=== PATIENT | male | born 1935 | race Caucasian/White ===

== ENCOUNTER 2017-05-25 12:33 | Outpatient (CLI) | payer MEDICARE | END 2017-05-25 12:34 | disposition home or self-care (01) | LOC: BICCT 12:33 | PROVIDERS: ATTEND Family Medicine | DX: M25.551 Pain in right hip (principal); M46.1 Sacroiliitis, not elsewhere classified; M16.11 Unilateral primary osteoarthritis, right hip; M47.896 Other spondylosis, lumbar region; M48.061 Spinal stenosis, lumbar region without neurogenic claudication; I70.90 Unspecified atherosclerosis | CPT/HCPCS: 72131 ==

== ENCOUNTER → 2017-07-19 | Day surgery (SDC) | payer MEDICARE ==
[~2017-07-19] MED LIST: Iopamidol-M 200 41% 20 ML VIAL ONE; Prevnar 13-Val Conj/PF 0.5 ML SYRINGE IM ONE
--- NOTE | 2017-07-19 12:51 | RAD ---
LUMBAR SPINE: DATE: 07/19/17. COMPARISON: Spiral stenosis. FINDINGS: Imaging includes lateral, neutral, flexion, and extension views as well as frontal radiograph. This was utilized as a welfare supervisor for lumbar spine myelogram as well. There is extensive atherosclerotic calcification of the abdominal aorta. Lateral neutral imaging dem onstrates no anterolisthesis or retrolisthesis. With extension and flexion views, no anterolisthesis or retrolisthesis was noted. There is facet hypertrophy at L3-4, L4-5, and L5-S1. There is disk sp leslie narrowing with degenerative end plate change and anterior osteophyte formation at the L5-S1 level . No acute finding is seen. Lumbar pedicles appear intact on frontal imaging. IMPRESSION: Degenerative change with no acute osseous abnormality. POS: [facility]
--- NOTE | 2017-07-19 13:10 | CT ---
LUMBAR SPINE CT MYELOGRAM: 07/19/2017 HISTORY: Lower extremity radiculopathy on the right. Leg gives out when walking on the right. COMPARISON: None. TECHNIQUE: Axial CT imaging obtained at 2.5 mm intervals, from the lower thoracic spine through the mid sacrum, with intrathecal contrast media. Coronal and sagittal reformatted imaging obtained. FINDINGS: There is no significant anterolisthesis or retrolisthesis noted within the lumbar spine. The conus medullaris terminates at the T12-L1 level. T12-L1: There is mild disk space narrowing with vacuum disk formation and minimal disk bulge, causin g no significant central canal or neural foraminal stenosis. There is mild anterior osteophyte forma tion. L1-L2: There is mild bilateral facet hypertrophy with mild bilateral neural foraminal stenosis. The re is disk space narrowing with disk osteophyte complex causing no significant central canal stenosis . L2-L3: Mild bilateral facet hypertrophy, and hypertrophy of the ligamentum flavum. Minimal disk bul ge present with no significant central canal stenosis. There is mild left and mild to moderate right neural foraminal stenosis. L3-L4: There is disk bulge with prominent facet hypertrophy and hypertrophy of the ligamentum flavum bilaterally. This combination of findings causes a moderate degree of central canal stenosis. Oste ophyte encroachment on the neural foramina leads to a moderate degree of bilateral neural foraminal s tenosis. L4-L5: There is bilateral facet hypertrophy and hypertrophy of the ligamentum flavum. There is disk space narrowing and mild disk bulge. There is mild central canal stenosis and mild bilateral neural foraminal stenosis. L5-S1: Bilateral facet hypertrophy noted, left greater than right, with mild bilateral neural forami nal stenosis. There is disk space narrowing, degenerative endplate change, and vacuum disk formation with posterior osteophyte formation. No significant central canal stenosis. There is extensive atherosclerotic calcification of the abdominal aorta and its branches. There are calcified lymph nodes in the retroperitoneum, stable. There is stable soft tissue density adjacent to and anterior to the distal aspect of the abdominal aorta, as seen on a CT examination per formed on 06/21/2013. There is no acute fracture or evidence of dislocation. There is no worrisome lytic or blastic bone l esion seen. 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 POS: [facility]
--- NOTE | 2017-07-19 13:14 | RAD ---
LUMBAR SPINE MYELOGRAM: 07/19/2017 HISTORY: Right lower extremity radiculopathy. Spinal stenosis. TECHNIQUE: Informed consent for lumbar spine myelogram obtained prior to the procedure. The skin overlying the lumbar spine was prepped and draped in the normal sterile fashion. FINDINGS: At L3-L4, the skin was anesthetized with 1% buffered Lidocaine. With intermittent fluoroscopic garrett nce, a 22 gauge spinal needle was advanced into the thecal sac, and removal of the stylet yielded candis ar cerebrospinal fluid. Subsequently, approximately 10 mL of Isovue-200 was injected, outlining the nerve roots of the cauda equina and filling the thecal sac. The needle was removed. The patient dimas erated the procedure well. The patient was sent to the CT scanner for CT myelogram of the lumbar spine. IMPRESSION: Successful lumbar spine myelogram. POS: [facility]
== END ==
LOC: CT 08:43
PROVIDERS: ATTEND Physician Assistant Surgical
PROC: B01B1ZZ Fluoroscopy of Spinal Cord using Low Osmolar Contrast (ICD-10-PCS; principal; 2017-07-19)
DX: M48.062 Spinal stenosis, lumbar region with neurogenic claudication (principal); Z79.82 Long term (current) use of aspirin; Z79.899 Other long term (current) drug therapy; Z87.891 Personal history of nicotine dependence
CPT/HCPCS: 62304; 72120; 72132

== ENCOUNTER 2017-08-17 05:52 | Observation (INO) | payer MEDICARE ==
[2017-08-16 14:15] VITALS: BMI 29.4
[2017-08-17] MEDS ORDERED: CEFAZOLIN/Water 2 GM/20 ML SYRINGE ONE (06:13)
[2017-08-17 06:28] LABS: #Basophils 0.1 thou/uL (0.0-0.2); #Eosinphils 0.2 thou/uL (0.0-0.7); #Lymphocytes 1.6 thou/uL (1.20-3.40); #Monocytes 0.5 thou/uL (0.11-0.59); #Neutrophils 4.2 thou/uL (1.40-6.50); %Basophils 0.8 % (0.0-1.0); %Eosinophils 3.5 % (0.0-10.0); %Lymphocytes 24.8 % (21.0-51.0); %Monocytes 7.3 % (0.0-10.0); %Neutrophils 63.6 % (42.0-75.0); Hemoglobin 13.3 g/dL (14.0-18.0); Mean Corpuscular HGB CONC 33.7 g/dL (32.0-36.0); Mean Corpuscular Hemoglobin 28.6 pg (27.0-31.0); Mean Corpuscular Volume 84.8 fl (80.0-94.0); Mean Platelet Volume 6.9 fL (7.4-10.4); Platelet Count 183 thou/uL (130-400); RBC Distribution Width 12.4 % (11.5-14.5); Red Blood Cell (RBC) Count 4.65 mill/uL (4.70-6.10); White Blood Cell (WBC) Count 6.5 thou/uL (4.8-10.8)
[2017-08-17 06:34] LABS: PTT 28.1 SEC (22.9-36.1)
[2017-08-17] MEDS ORDERED: Bacitracin Zinc Ointment 30 gm TUBE ONE (06:45)
[2017-08-17] MEDS ORDERED: Thrombin 5000 UNITS/5 ML VIAL ONE (06:45)
[2017-08-17] MEDS ORDERED: Sodium Chloride 0.9% 10 ML ONE (06:45)
[2017-08-17 06:49] LABS: Anion Gap 9 mmol/L (10-20); BUN (Urea Nitrogen) 20 mg/dL (8.4-25.7); Calc. Creatinine Clearance 49 mL/min (70-130); Calcium 9.7 mg/dL (7.8-10.44); Carbon Dioxide 27 mmol/L (23-31); Chloride 108 mmol/L (98-107); Estimated GFR-MDRD 43; Glucose 101 mg/dL (83-110); Potassium 4.3 mmol/L (3.5-5.1); Sodium 140 mmol/L (136-145)
[2017-08-17] MEDS ORDERED: Phenylephrine HCL 10 MG/ML VIAL ONE (07:08)
[2017-08-17] MEDS ORDERED: Fentanyl 100 MCG/2 ML VIAL ONE ×4 (07:11→10:54)
[2017-08-17] MEDS ORDERED: Meperidine HCl/PF 25 MG/ML VIAL SLOW IVP PRN (08:39)
[2017-08-17] MEDS ORDERED: HYDROmorphone 2 MG/ML VIAL SLOW IVP PRN (08:39)
[2017-08-17] MEDS ORDERED: Promethazine HCl 25 MG/ML VIAL IM PRN ×2 (08:39→12:20)
[2017-08-17] MEDS ORDERED: Promethazine HCl 25 MG/ML VIAL SLOW IVP PRN (08:39)
[2017-08-17] MEDS ORDERED: Ondansetron HCl/PF 4 MG/2 ML Vial IVP PRN (08:39)
[2017-08-17] MEDS ORDERED: Morphine Sulfate 2 MG/ML SYRINGE SLOW IVP PRN (08:39)
[2017-08-17] MEDS ORDERED: PROPOFOL 200 MG/20 ML VIAL ONE (09:49)
[2017-08-17] MEDS ORDERED: PHENYLEPHRINE-NS 100 MCG/ML 10 ML SYRINGE ONE (09:49)
[2017-08-17] MEDS ORDERED: Glycopyrrolate 0.2 MG/ML 5 ML SYRINGE ONE (09:49)
[2017-08-17] MEDS ORDERED: Lidocaine 1% PF 5 ML VIAL ONE (09:49)
[2017-08-17] MEDS ORDERED: HYDROmorphone 0.5 MG/0.5 ML SYRINGE ONE (11:11)
[2017-08-17] MEDS ORDERED: Promethazine HCl 25 MG/ML VIAL ONE (11:14)
[2017-08-17] MEDS ORDERED: Promethazine 25 MG TAB PO PRN (12:20)
[2017-08-17] MEDS ORDERED: Promethazine HCl 12.5 MG SUPP PR PRN (12:20)
[2017-08-17] MEDS ORDERED: diphenhydrAMINE 25 MG CAP PO PRN (12:20)
[2017-08-17] MEDS ORDERED: Acetaminophen 650 MG Suppository PR PRN (12:20)
[2017-08-17] MEDS ORDERED: Fleet Enema 133 ML BOT PR PRN (12:20)
[2017-08-17] MEDS ORDERED: Ondansetron HCl/PF 4 MG/2 ML Vial IM PRN (12:20)
[2017-08-17] MEDS ORDERED: HYDROcodone/Acetaminophen 7.5/325 mg Tablet PO PRN (12:20)
[2017-08-17] MEDS ORDERED: diphenhydrAMINE 50 MG/ML VIAL IVP PRN (12:20)
[2017-08-17] MEDS ORDERED: Mag-Al 1200 mg/1200 mg/30 ML UDCUP PO PRN (12:20)
[2017-08-17] MEDS ORDERED: traMADol HCl 50 MG TAB PO PRN (12:20)
[2017-08-17] MEDS ORDERED: Milk Of Magnesia 30 ML UDCUP PO PRN (12:20)
[2017-08-17] MEDS ORDERED: Bisacodyl 10 MG SUPP PR PRN (12:20)
[2017-08-17] MEDS: HYDROcodone/Acetaminophen 7.5/325 mg Tablet PO PRN ×2 (13:17→17:01)
[2017-08-17] MEDS: tiZANidine HCl 4 MG TAB PO PRN ×2 (13:17→21:32)
[2017-08-17] MEDS: Sodium Chloride 0.9% 1,000 ML IV SCH (13:58)
--- NOTE | 2017-08-17 14:38 | OP ---
SURGEON: Krishna Moralez M.D. PREPROCEDURE DIAGNOSIS: Lumbar stenosis with low back and leg pain. POSTPROCEDURE DIAGNOSES: Lumbar stenosis with low back and leg pain. PROCEDURE: L3-L4, L4-L5 laminectomies, partial facetectomies and foraminotomies over the L3, L4, L5 nerve roots. DESCRIPTION OF PROCEDURE: After informed consent was obtained from the patient, the patient brought to OR #12. Proper patient pause and identification was carried out. He was placed in excellent gene ral endotracheal anesthesia and positioned prone on the OR table. All appropriate points were padded . We identified the L3, L4, L5 dorsal spines. A linear kavin was made over this region. This area a gain was sterilely cleansed, prepared, and draped and proper patient pause and identification was car ried out. The wound was then opened with a combination of sharp, monopolar and blunt dissection and we then exposed the spinous processes and lamina at L3, L4, L5. Localization film confirmed our area of interest. We then performed L3, L4, L5 laminectomies, partial facetectomies and foraminotomies o devi the L3, L4, L5 nerve roots. We had excellent decompression of the common dural tube. Hemostasis was maximized throughout. The wound was then closed in anatomic layers following copious irrigation and meticulous hemostasis and the patient then emerged from anesthesia. There was no CSF leak.
[2017-08-17] MEDS: CEFAZOLIN/Water 2 GM/20 ML SYRINGE SLOW IVP SCH ×2 (14:55→21:32)
[2017-08-17] MEDS: traMADol HCl 50 MG TAB PO PRN (15:01)
[2017-08-17] MEDS ORDERED: Tamsulosin HCl 0.4 MG CAP PO SCH (20:00)
[2017-08-18] MEDS: HYDROcodone/Acetaminophen 7.5/325 mg Tablet PO PRN ×2 (02:44→08:49)
[2017-08-18] MEDS: Sodium Chloride 0.9% 1,000 ML IV SCH ×3 (02:45→19:59)
[2017-08-18] MEDS ORDERED: Sodium Chloride 0.9% 500 ML IV SCH (06:45)
[2017-08-18] MEDS ORDERED: Tamsulosin HCl 0.4 MG CAP PO SCH (09:00)
--- NOTE | 2017-08-18 09:44 | PRG ---
DATE OF SERVICE: 08/18/2017 Mr. Lam is postoperative day #1 following lumbar laminectomy with Dr. Moralez. He is doing well an d has as excepted postoperative pain. He has been out of bed time and his pain is not manageable at this moment. He has had urinary retention overnight. We tried a fluid bolus and pain pills and we w ill just may be give this more time. Bladder scan this morning was 250 mL which is not much and he i s not in any discomfort at present. Plan for today will be change the dressing x1, ambulate him more frequently and see if we can get him urinating with anticipated discharge today if all these things occur.
[2017-08-18] MEDS ORDERED: Amlodipine 5 MG TAB PO SCH (14:15)
[2017-08-18] MEDS ORDERED: Nebivolol HCl 5 MG TAB PO SCH (14:15)
[2017-08-18] MEDS ORDERED: Ezetimibe 10 MG TAB PO SCH (14:15)
[2017-08-18] MEDS ORDERED: Rosuvastatin 20 MG TAB PO SCH (14:15)
[2017-08-18] MEDS ORDERED: Bicalutamide 50 MG TAB PO SCH (14:15)
[2017-08-18] MEDS: Tamsulosin HCl 0.4 MG CAP PO SCH (21:19)
[2017-08-18] MEDS: Nitrofurantoin Monohyd/M-Cryst 100 MG CAP PO SCH (21:19)
[2017-08-18] MEDS: Acetaminophen 325 MG TAB PO PRN (21:19)
--- NOTE | 2017-08-19 02:00 | CON ---
DATE OF CONSULTATION: 08/18/2017 HISTORY OF PRESENT ILLNESS: This is an 82-year-old white male I have known for a few years. He had prostate cancer found after TURP a few years ago, has been treated with Lupron radiation. His PSA jacobsen s been doing well. His last PSA was undetectable was about 6 months ago. He was admitted after a keith rgical procedure by Dr. Moralez. This was done yesterday. He had L3-L4, L4-L5 laminectomies. He has had some back pain, has had some difficulty urinating, has been incontinent of some urine, had in an d out catheterization last night and then a postvoid residual that was relatively low this morning at 2:50 and he was given opportunity to urinate and had some incontinence and the residual showed 400 m L. So, Jimenez catheter was placed, Urology consult was called for. His vital signs, he has had a tem perature of 99.9. His blood pressure has been fine. His urine is draining down into the Jimenez [address] ter. His creatinine was 1.55 yesterday. His white count was 6.5, hemoglobin 13.3. On talking with him, he states that he never really had a good strong urge to urinate. When he tried to urinate, he could not urinate. He is having some back pain at the incisional site, but he has no numbness in his lower extremities or perineum. He has decent strength in his ankles and calves. He has normal meenakshi tatyana sensation. On exam, got a good rectal tone and voluntary anal contraction on exam. His abdomen is soft. I think at this point the best bet for him with his age are just be to leave his catheter in the next 2 days, urine culture be set up. We will put him on some Macrobid. Macrodantin to be ta cesar over the weekend twice a day, probably give him a voiding trial on Monday. Thinks will be easier than doing in and out catheterization every few hours over the weekend. It does not appear lorin g to the nurse that he is likely to go home this weekend.
[2017-08-19] MEDS: traMADol HCl 50 MG TAB PO PRN (02:12)
[2017-08-19] MEDS: Sodium Chloride 0.9% 1,000 ML IV SCH ×2 (04:28→19:31)
[2017-08-19] MEDS: Ezetimibe 10 MG TAB PO SCH (09:40)
[2017-08-19] MEDS: Rosuvastatin 20 MG TAB PO SCH (09:40)
[2017-08-19] MEDS: Nebivolol HCl 5 MG TAB PO SCH (09:40)
[2017-08-19] MEDS: Senokot S 8.6-50 MG TAB PO SCH ×2 (09:41→21:32)
[2017-08-19] MEDS: Amlodipine 5 MG TAB PO SCH (09:41)
[2017-08-19] MEDS: Nitrofurantoin Monohyd/M-Cryst 100 MG CAP PO SCH ×2 (09:41→21:32)
[2017-08-19] MEDS: Lisinopril 5 MG TAB PO SCH (09:41)
[2017-08-19] MEDS: Tamsulosin HCl 0.4 MG CAP PO SCH ×2 (09:41→21:32)
[2017-08-19] MEDS: Bicalutamide 50 MG TAB PO SCH (09:42)
--- NOTE | 2017-08-19 10:21 | PRG ---
DATE OF SERVICE: 08/19/2017 Mr. Lam is now postop day #2 following lumbar laminectomy with Dr. Moralez. He continues to have p ersistent difficulty with ambulation and has not yet urinated. We placed a Jimenez catheter yesterday and consulted Urology given his history of prostate cancer and BPH with history of prostate surgery. His recommendation is to keep Jimenez in place for the next 2 days and then consider removal at that p oint. I think this is an agreeable plan. The patient reports this morning that he is still yet to h ave a bowel movement in the last 48 hours. He is due for a surgery. We will add a stool softener fo r this purpose. His incision remains dry and we will continue to ambulate and work with therapy. Megan jiang management is working on referral and authorization to inpatient rehabilitation at [place]. Amadeo walter colleagues at [facility] are aware of him and are working on this as well. He does have [facility], so this procedure may going to have difficulties here. We will continue to track his progr ess.
[2017-08-19] MEDS ORDERED: Bisacodyl 10 MG SUPP PR SCH (14:00)
[2017-08-20] MEDS: Sodium Chloride 0.9% 1,000 ML IV SCH ×2 (06:11→21:38)
[2017-08-20] MEDS ORDERED: Dexamethasone 4 mg/ml Vial SLOW IVP SCH (07:45)
[2017-08-20] MEDS: Nebivolol HCl 5 MG TAB PO SCH (09:12)
[2017-08-20] MEDS: Rosuvastatin 20 MG TAB PO SCH (09:12)
[2017-08-20] MEDS: Tamsulosin HCl 0.4 MG CAP PO SCH ×2 (09:12→21:04)
[2017-08-20] MEDS: Lisinopril 5 MG TAB PO SCH (09:13)
[2017-08-20] MEDS: Amlodipine 5 MG TAB PO SCH (09:13)
[2017-08-20] MEDS: Ezetimibe 10 MG TAB PO SCH (09:13)
[2017-08-20] MEDS: Nitrofurantoin Monohyd/M-Cryst 100 MG CAP PO SCH ×2 (09:13→21:04)
[2017-08-20] MEDS: Acetaminophen 325 MG TAB PO PRN ×2 (09:13→21:04)
[2017-08-20] MEDS: Senokot S 8.6-50 MG TAB PO SCH ×2 (09:14→23:50)
[2017-08-20] MEDS: Bicalutamide 50 MG TAB PO SCH (09:14)
--- NOTE | 2017-08-20 20:48 | PRG ---
DATE OF SERVICE: 08/20/2017 Mr. Lam is known to be postop lumbar laminectomy with Dr. Moralez. He again continues to be weak a nd slow ambulation requiring 2-person assist frequently. He has good sensation and strength in his l egs while lying in the bed, but he has a lot of back pain and I think just overall some deconditionin g. I will add a dose of steroids to see if they can help some of his pain postoperatively now, we wi ll have to get him up and ambulated 3 times a day. We are also awaiting rehab placement. We will li sofia no more over the course of the next few days .
--- NOTE | 2017-08-20 21:10 | PRG ---
DATE OF SERVICE: 08/20/2017 Mr. Lam is status post lumbar laminectomy. He struggled with ambulation over the last 2 days and has had difficulty with urinary retention. Our colleagues in Urology have seen him and I have recomm ended keeping the Jimenez in place. Case management is currently working on disposition planning perha ps towards inpatient rehabilitation.
[2017-08-21] MEDS: Ezetimibe 10 MG TAB PO SCH (08:43)
[2017-08-21] MEDS: Acetaminophen 325 MG TAB PO PRN (08:43)
[2017-08-21] MEDS: Tamsulosin HCl 0.4 MG CAP PO SCH ×2 (08:44→21:19)
[2017-08-21] MEDS: Nitrofurantoin Monohyd/M-Cryst 100 MG CAP PO SCH ×2 (08:44→21:19)
[2017-08-21] MEDS: Rosuvastatin 20 MG TAB PO SCH (08:45)
[2017-08-21] MEDS: Lisinopril 5 MG TAB PO SCH (08:45)
[2017-08-21] MEDS: Amlodipine 5 MG TAB PO SCH (08:45)
[2017-08-21] MEDS: Bicalutamide 50 MG TAB PO SCH (08:46)
[2017-08-21] MEDS: Nebivolol HCl 5 MG TAB PO SCH (08:46)
[2017-08-21] MEDS: Sodium Chloride 0.9% 1,000 ML IV SCH (08:47)
[2017-08-21] MEDS: Senokot S 8.6-50 MG TAB PO SCH ×2 (08:47→21:20)
[2017-08-22] MEDS: Sodium Chloride 0.9% 1,000 ML IV SCH ×2 (02:05→09:11)
[2017-08-22] MEDS: cloNIDine 0.1 MG TAB PO PRN (05:41)
[2017-08-22] MEDS: Nitrofurantoin Monohyd/M-Cryst 100 MG CAP PO SCH ×2 (08:43→21:04)
[2017-08-22] MEDS: Amlodipine 5 MG TAB PO SCH (08:44)
[2017-08-22] MEDS: Nebivolol HCl 5 MG TAB PO SCH (08:44)
[2017-08-22] MEDS: Ezetimibe 10 MG TAB PO SCH (08:45)
[2017-08-22] MEDS: Rosuvastatin 20 MG TAB PO SCH (08:45)
[2017-08-22] MEDS: Lisinopril 5 MG TAB PO SCH (08:45)
[2017-08-22] MEDS: Tamsulosin HCl 0.4 MG CAP PO SCH ×2 (08:46→21:04)
[2017-08-22] MEDS: Bicalutamide 50 MG TAB PO SCH (08:46)
[2017-08-22] MEDS: Senokot S 8.6-50 MG TAB PO SCH ×2 (09:01→21:04)
[2017-08-22] MEDS: Acetaminophen 325 MG TAB PO PRN ×2 (11:27→17:21)
[2017-08-22] MEDS ORDERED: CONFIRM ALL DAY 1 DOSES ARE TIMED FOR DAY 1 FS SCH (12:45)
--- NOTE | 2017-08-22 14:27 | RAD ---
AP PELVIS RADIOGRAPH: Date: 08-22-17 History: Right hip pain. FINDINGS: There is no evidence of a fracture or dislocation. Degenerative changes as well as post-surgical tellez ges of the lumbar spine are noted. Skin clips are seen overlying lower lumbar spine. Vascular calcifi cations are seen in the iliac and femoral arteries. Phleboliths overlie the pelvis. Surgical clips ov erlie the scrotum bilaterally. IMPRESSION: 1. No acute osseous abnormality involving the bilateral hips. 2. Post-surgical changes of the lumbar spine. POS: [facility]
[2017-08-22] MEDS: tiZANidine HCl 4 MG TAB PO PRN (17:21)
[2017-08-22] MEDS: methylPREDNISolone 4 mg Tablet PO SCH ×2 (17:21→21:03)
--- NOTE | 2017-08-22 19:15 | PRG ---
DATE OF SERVICE: 08/22/2017 SUBJECTIVE: He is 5 days out from lumbar laminectomy. His postoperative course has been complicated by urinary retention, essentially difficulty ambulating with significant right hip pain. He feels a s if his right leg does not work as well as he would like, although on exam, he is alert. He has ful l strength throughout his bilateral lower extremity myotomes. He has no left lower extremity pain. He states his right lower extremity was the one that gave him difficulty preoperatively and he and hi s son both endorse the fact that he has been up walking and has been able to walk a full [facility]. He is using a rolling walker. Urinary retention has been an issue as well. He does have a diaper in place. He does have his prostate gland and we appreciate the excellent care of our urol ogical colleagues as well. His dressing is dry. At this point, we are making strides to get him to inpatient rehab. I think it is just a matter of time. I have done a hip x-ray with pelvic x-ray and he has some degenerative changes and I do suspect he has a right-sided radiculitis. I will initiate a Medrol Dosepak. He does not have diabetes. We will continue to make strides towards inpatient re habilitation.
[2017-08-23] MEDS: cloNIDine 0.1 MG TAB PO PRN (03:39)
[2017-08-23] MEDS: Sodium Chloride 0.9% 1,000 ML IV SCH ×2 (04:24→16:36)
[2017-08-23] MEDS: Bicalutamide 50 MG TAB PO SCH (08:27)
[2017-08-23] MEDS: methylPREDNISolone 4 mg Tablet PO SCH ×4 (08:27→17:30)
[2017-08-23] MEDS: Lisinopril 5 MG TAB PO SCH (08:27)
[2017-08-23] MEDS: Ezetimibe 10 MG TAB PO SCH (08:27)
[2017-08-23] MEDS: Rosuvastatin 20 MG TAB PO SCH (08:28)
[2017-08-23] MEDS: Nitrofurantoin Monohyd/M-Cryst 100 MG CAP PO SCH (08:28)
[2017-08-23] MEDS: Amlodipine 5 MG TAB PO SCH (08:28)
[2017-08-23] MEDS: Tamsulosin HCl 0.4 MG CAP PO SCH (08:28)
[2017-08-23] MEDS: Nebivolol HCl 5 MG TAB PO SCH (08:32)
[2017-08-23] MEDS: Senokot S 8.6-50 MG TAB PO SCH (08:36)
--- NOTE | 2017-08-23 13:44 | PRG ---
DATE OF SERVICE: 08/23/2017 Mr. Lam continues to improve following his lumbar laminectomy. He feels as if he is more comforta ble today than he was yesterday. He has been approved for inpatient rehabilitation after I did appea l with [facility]. I would like him to hold his aspirin for another week. However, I am plea sed with how he is doing at this point and I think that rehab will be in his continued best interest.
[2017-08-23 16:57] VITALS: BP 159/75; TEMP 98.3
[2017-08-23] MEDS ORDERED: methylPREDNISolone 4 mg Tablet PO SCH (21:00)
[2017-08-24] MEDS ORDERED: methylPREDNISolone 4 mg Tablet PO SCH (08:00)
[2017-08-25] MEDS ORDERED: methylPREDNISolone 4 mg Tablet PO SCH (08:00)
[2017-08-26] MEDS ORDERED: methylPREDNISolone 4 mg Tablet PO SCH (08:00)
[2017-08-27] MEDS ORDERED: methylPREDNISolone 4 mg Tablet PO SCH (08:00)
== END 2017-08-23 17:40 ==
LOC: SDC 05:52 → SURG B 12:20
PROVIDERS: ADMIT Surgery; ATTEND Surgery
PROC: 01NB0ZZ Release Lumbar Nerve, Open Approach (ICD-10-PCS; principal; 2017-08-17)
DX: M48.062 Spinal stenosis, lumbar region with neurogenic claudication (principal); M54.16 Radiculopathy, lumbar region; R33.9 Retention of urine, unspecified; Z95.0 Presence of cardiac pacemaker; Z95.5 Presence of coronary angioplasty implant and graft; Z79.82 Long term (current) use of aspirin; Z79.899 Other long term (current) drug therapy
CPT/HCPCS: 51701; 51702; 51798 ×3; 63047; 63048 ×2; 72170; 76001; 80048; 82962; 85025; 85610; 85730; 87086 ×2; 96374; 96375 ×3; 96376; 97110 ×2; 97116 ×5; 97139 ×3; 97530 ×3; G0378 ×2; G8978; G8979; G8987; G8988; 36415; 36416; A4216; J0131; J1100; J1170; J2001; J2370; J2550; J2704; J3010; J3370; J3490

== ENCOUNTER 2017-10-01 13:32 | Emergency (ER) | payer MEDICARE ==
[2017-10-01] MEDS ORDERED: Phenazopyridine HCl 97.5 MG TABLET ONE (14:47)
[2017-10-01 15:35] LABS: Bilirubin Negative (Negative); Blood, Urine Moderate (Negative); Clarity CLOUDY (Clear); Glucose, Urine (Dipstick) Negative (Negative); Leukocyte Moderate (Negative); Nitrite Negative (Negative); Protein, Urine (Dipstick) 30 mg/dL (Neg-Trace); Specific Gravity, Urine 1.019 (1.002-1.036); Urobilinogen 0.2 mg/dL (0.2-1.0)
[2017-10-01 15:39] LABS: Bacteria/HPF 2+ HPF (None Seen); Hyaline Casts/LPF 0-3 HYALINE CAST LPF (0-3 Hyaline); Squamous Epithelial None Seen HPF (0-3)
== END 2017-10-01 15:22 | disposition home or self-care (01) ==
LOC: ERS 13:32
DX: R30.0 Dysuria (principal); K21.9 Gastro-esophageal reflux disease without esophagitis; E78.5 Hyperlipidemia, unspecified; I10 Essential (primary) hypertension; Z79.82 Long term (current) use of aspirin; Z79.899 Other long term (current) drug therapy
CPT/HCPCS: 81003; 81015; 87077; 87086; 87186; 99283

== ENCOUNTER 2018-01-08 12:01 | Outpatient (CLI) | payer MEDICARE ==
--- NOTE | 2018-01-08 14:57 | CT ---
CT NECK WITH CONTRAST: Date: 01/08/18 Multiple axial tomograms obtained through the neck with IV enhancement. INDICATIONS: Palpable mass behind right ear. Marker placed at area of concern. FINDINGS: Review of the parotid glands reveals an abnormal, irregular shaped, enhancing mass involving the infe rior right parotid gland measuring 1.5-2.0 cm. This may correspond to the area of palpable concern. Submandibular glands are unremarkable. Thyroid unremarkable. Nasopharynx unremarkable. Oropharynx and base of tongue are unremarkable. The tongue and base of tongue are obscured by spray a rtifact from dental appliances. Hypopharynx and larynx unremarkable. No evidence of adenopathy. The manager technical sales space, parapharyngeal and retropharyngeal spaces appear unremarkable. Review of the ca rotid space shows atherosclerotic changes in both bulb regions. The paranasal sinuses and mastoid air cells are well aerated. There are degenerative changes in the cervical spine. IMPRESSION: An irregular shaped enhancing mass involving the inferior aspect of the right parotid gland. 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 Recommend ENT consultation. POS: [facility]
[2018-01-08] MEDS ORDERED: ISOVUE-370 76%-LOCM 1 ML ONE (15:14)
== END 2018-01-08 12:02 | disposition home or self-care (01) ==
LOC: BICCT 12:01
PROVIDERS: ATTEND Family Medicine
DX: C44.310 Basal cell carcinoma of skin of unspecified parts of face (principal); K11.9 Disease of salivary gland, unspecified
CPT/HCPCS: 70491; 82565

== ENCOUNTER 2018-01-17 08:26 | Day surgery (SDC) | payer MEDICARE ==
[2018-01-16 14:53] VITALS: BMI 27.9
[2018-01-17 09:08] LABS: Hemoglobin 12.5 g/dL (14.0-18.0)
[2018-01-17 09:29] LABS: Anion Gap 11 mmol/L (10-20); BUN (Urea Nitrogen) 24 mg/dL (8.4-25.7); Calc. Creatinine Clearance 45 mL/min (70-130); Calcium 9.3 mg/dL (7.8-10.44); Carbon Dioxide 26 mmol/L (23-31); Chloride 108 mmol/L (98-107); Estimated GFR-MDRD 42; Glucose 100 mg/dL (83-110); Potassium 4.3 mmol/L (3.5-5.1); Sodium 141 mmol/L (136-145)
[2018-01-17] MEDS ORDERED: Lidocaine 1% w/Epinephrine 1:100K 30 ML VIAL ONE (09:44)
[2018-01-17] MEDS ORDERED: Fentanyl 100 MCG/2 ML VIAL ONE ×3 (09:47→12:29)
[2018-01-17] MEDS ORDERED: Bacitracin Zinc Ointment 30 gm TUBE ONE (11:07)
[2018-01-17] MEDS ORDERED: Dexamethasone 4 mg/ml Vial ONE ×2 (11:54→11:55)
[2018-01-17] MEDS ORDERED: Hydrocodone-Acetamin 15 ML UDCUP ONE (12:55)
[2018-01-17] MEDS ORDERED: PROPOFOL 200 MG/20 ML VIAL ONE (15:02)
[2018-01-17] MEDS ORDERED: Dexamethasone 20 MG/5 ML VIAL ONE (15:02)
[2018-01-17] MEDS ORDERED: Lidocaine 1% PF 5 ML VIAL ONE (15:02)
[2018-01-17] MEDS ORDERED: Ondansetron HCl/PF 4 MG/2 ML Vial ONE (15:02)
[2018-01-17] MEDS ORDERED: Succinylcholine Chloride 20 MG/ML 10 ml SYRINGE FS ONE (15:02)
[2018-01-17] MEDS ORDERED: PHENYLEPHRINE-NS 100 MCG/ML 10 ML SYRINGE ONE (15:02)
--- NOTE | 2018-01-18 08:15 | EKG ---
Test Reason : PREOP Blood Pressure : / mmHG Vent. Rate : 061 BPM Atrial Rate : 065 BPM P-R Int : 000 ms QRS Dur : 198 ms QT Int : 484 ms P-R-T Axes : 000 -82 044 degrees QTc Int : 487 ms Poor data quality, interpretation may be adversely affected AV dual-paced rhythm Abnormal ECG When compared with ECG of 18-FEB-2016 19:45, Electronic ventricular pacemaker has replaced Electronic atrial pacemaker Confirmed by FLORENTINO NESBITT ([id number]) on 01/18/2018 8:15:23 AM Referred By: Erlinda NICHOLS Confirmed By:FLORENTINO NESBITT
--- NOTE | 2018-01-18 10:06 | OP ---
DATE OF PROCEDURE: 01/20/2018 PREOPERATIVE DIAGNOSIS: Right parotid mass. POSTOPERATIVE DIAGNOSIS: Right parotid mass. PROCEDURE: Right superficial parotidectomy with facial nerve monitoring. SURGEON: Lee Hayes M.D. ESTIMATED BLOOD LOSS: 20 mL. COMPLICATIONS: None. ANESTHESIA: GETA. PROCEDURE IN DETAIL: The patient was taken to the operating room and placed supine on the table. Ge neral endotracheal anesthesia obtained by Anesthesia staff. Tube was secured in the left lower lip a nd the shoulder roll was placed and the patient was prepped and draped in standard surgical fashion. Following this, 8 mL of 1% lidocaine with 1:100,000 epinephrine was injected into the anticipated sk in incision. Following this, a modified Jerrod-type incision was created staying in the preauricular crease extending around the earlobe by 1 cm and then extending onto the neck approximately 2 cm below the angle of the mandible. A fat up fat down skin flap was elevated over the right superficial paro tid area. Following this, the supervision of the parotid gland was freed from the attachments to the sternocleidomastoid and the tragal cartilage. Dissection medially down the tragal cartilage reveale d the tympanomastoid suture line. Just medial to this, the facial nerve was identified. It was dis sected laterally until the superior and inferior divisions were identified. Following this, the supe rior and inferior divisions were tracked laterally, freeing the gland and the mass. The mass and a c uff of tissue was removed from the superficial parotid lobe and was sent for pathologic analysis. Fo llowing this, the wound was irrigated, a small drain was placed. The platysmal layers were closed us ing Monocryl stitches and the skin was closed using Prolene stitches. Prior to the procedure the fac ial nerve monitor was set up and first placed into the orbicularis james and the orbicularis ocu li muscles. Facial nerve was turned on at the beginning of the procedure and this Physician Assistan t was designated to observe facial nerve monitoring throughout the procedure. The patient tolerated the procedure well.
== END 2018-01-17 14:25 | disposition home or self-care (01) ==
LOC: SDC 08:26
PROVIDERS: ATTEND Otolaryngology Plastic Surgery within the Head & Neck
PROC: 0CBB0ZZ Excision of Right Parotid Duct, Open Approach (ICD-10-PCS; principal; 2018-01-17)
DX: C07 Malignant neoplasm of parotid gland (principal); E78.00 Pure hypercholesterolemia, unspecified; K21.9 Gastro-esophageal reflux disease without esophagitis; I10 Essential (primary) hypertension; M19.90 Unspecified osteoarthritis, unspecified site; Z87.891 Personal history of nicotine dependence; Z79.82 Long term (current) use of aspirin; Z79.899 Other long term (current) drug therapy; Z95.0 Presence of cardiac pacemaker; Z95.5 Presence of coronary angioplasty implant and graft
CPT/HCPCS: 36415; 80048; 85014; 85018; 88307; 93005; 93010; 96374; J1100; J2001; J2405; J2704; J3010

== ENCOUNTER 2018-02-07 11:50 | Emergency (ER) | payer MEDICARE ==
[2018-02-07 13:01] LABS: #Eosinphils 0.2 thou/uL (0.0-0.7); #Lymphocytes 1.9 thou/uL (1.20-3.40); #Monocytes 0.4 thou/uL (0.11-0.59); #Neutrophils 3.6 thou/uL (1.40-6.50); %Basophils 0.1 % (0.0-1.0); %Eosinophils 3.7 % (0.0-10.0); %Lymphocytes 30.6 % (21.0-51.0); %Monocytes 7.2 % (0.0-10.0); %Neutrophils 58.4 % (42.0-75.0); Hemoglobin 12.8 g/dL (14.0-18.0); Mean Corpuscular HGB CONC 32.4 g/dL (32.0-36.0); Mean Corpuscular Hemoglobin 26.7 pg (27.0-31.0); Mean Corpuscular Volume 82.4 fL (78.0-98.0); Mean Platelet Volume 7.2 fL (7.4-10.4); Platelet Count 236 thou/uL (130-400); RBC Distribution Width 13.6 % (11.5-14.5); Red Blood Cell (RBC) Count 4.78 mill/uL (4.70-6.10); White Blood Cell (WBC) Count 6.1 thou/uL (4.8-10.8)
[2018-02-07 13:28] LABS: ALT (SGPT) 15 U/L (8-55); AST (SGOT) 16 U/L (5-34); Alkaline Phosphatase 104 U/L (40-150); Anion Gap 12 mmol/L (10-20); BUN (Urea Nitrogen) 21 mg/dL (8.4-25.7); Bilirubin, Total 0.6 mg/dL (0.2-1.2); Calc. Creatinine Clearance 0 mL/min (70-130); Calcium 9.4 mg/dL (7.8-10.44); Carbon Dioxide 23 mmol/L (23-31); Chloride 108 mmol/L (98-107); Estimated GFR-MDRD 46; Globulin 2.5 g/dL (2.4-3.5); Glucose 90 mg/dL (83-110); Potassium 4.4 mmol/L (3.5-5.1); Protein, Total 6.5 g/dL (5.8-8.1); Sodium 139 mmol/L (136-145)
[2018-02-07 13:41] LABS: Bilirubin Negative (Negative); Blood, Urine Large (Negative); Clarity CLEAR (Clear); Glucose, Urine (Dipstick) Negative (Negative); Leukocyte Trace (Negative); Nitrite Negative (Negative); Protein, Urine (Dipstick) Trace mg/dL (Neg-Trace); Urobilinogen 0.2 mg/dL (0.2-1.0); pH, Urine 6.5 (5.0-9.0)
[2018-02-07 13:47] LABS: Bacteria/HPF None Seen HPF (None Seen); Hyaline Casts/LPF 0-3 HYALINE CAST LPF (0-3 Hyaline); Pathc Cast-AUWi Flag 0.29 (0-2.49); RBC/HPF GREATER THAN 50-TNTC HPF (0-3); Squamous Epithelial 0-3 HPF (0-3)
== END 2018-02-07 16:14 | disposition home or self-care (01) ==
LOC: ERS 11:50
DX: N32.89 Other specified disorders of bladder (principal); R33.9 Retention of urine, unspecified; K21.9 Gastro-esophageal reflux disease without esophagitis; I10 Essential (primary) hypertension; E78.5 Hyperlipidemia, unspecified; Z79.82 Long term (current) use of aspirin; Z79.899 Other long term (current) drug therapy
CPT/HCPCS: 36415; 80053; 81003; 81015; 85025

== ENCOUNTER 2020-06-20 11:49 | Inpatient (IN) | payer MEDICARE ==
[2020-06-20] MEDS ORDERED: Iopamidol-370 76% 500 ML 1 ML ONE (12:39)
[2020-06-20 12:44] LABS: #Basophils 0.1 thou/uL (0.0-0.2); #Lymphocytes 1.2 thou/uL (1.20-3.40); #Monocytes 0.8 thou/uL (0.11-0.59); #Neutrophils 10.1 thou/uL (1.40-6.50); %Basophils 0.8 % (0.0-1.0); %Eosinophils 0.3 % (0.0-10.0); %Lymphocytes 9.8 % (21.0-51.0); %Monocytes 6.3 % (0.0-10.0); %Neutrophils 82.8 % (42.0-75.0); Hemoglobin 13.4 g/dL (14.0-18.0); Mean Corpuscular HGB CONC 32.9 g/dL (32.0-36.0); Mean Corpuscular Hemoglobin 27.5 pg (27.0-31.0); Mean Corpuscular Volume 83.7 fL (78.0-98.0); Mean Platelet Volume 8.3 fL (7.4-10.4); Platelet Count 170 thou/uL (130-400); RBC Distribution Width 13.8 % (11.5-14.5); Red Blood Cell (RBC) Count 4.87 mill/uL (4.70-6.10); White Blood Cell (WBC) Count 12.2 thou/uL (4.8-10.8)
[2020-06-20 12:44] LABS: Bilirubin Negative (Negative); Blood, Urine Negative (Negative); Clarity Clear (Clear); Glucose, Urine (Dipstick) Normal (Negative); Ketone, Urine Negative (Negative); Leukocyte Negative Leu/uL (Negative); Nitrite Negative (Negative); Protein, Urine (Dipstick) 20 mg/dL (Neg-Trace); Specific Gravity, Urine 1.025 (1.002-1.036); Urobilinogen Normal mg/dL (Less than 2); pH, Urine 5.5 (5.0-9.0)
[2020-06-20 13:10] LABS: ALT (SGPT) 11 U/L (8-55); AST (SGOT) 11 U/L (5-34); Albumin 3.8 g/dL (3.4-4.8); Alkaline Phosphatase 88 U/L (40-110); Anion Gap 13 mmol/L (10-20); BUN (Urea Nitrogen) 17 mg/dL (8.4-25.7); Bilirubin, Total 0.7 mg/dL (0.2-1.2); Calc. Creatinine Clearance 0 mL/min (70-130); Calcium 8.6 mg/dL (7.8-10.44); Carbon Dioxide 22 mmol/L (23-31); Chloride 108 mmol/L (98-107); Globulin 2.3 g/dL (2.4-3.5); Glucose 107 mg/dL (83-110); Lipase 7 U/L (8-78); Potassium 4.2 mmol/L (3.5-5.1); Protein, Total 6.1 g/dL (5.8-8.1); Sodium 139 mmol/L (136-145)
[2020-06-20] MEDS ORDERED: Pantoprazole 40 MG VIAL ONE (13:11)
[2020-06-20 15:52] LABS: Lactic Acid 0.9 mmol/L (0.5-2.2)
[2020-06-20] MEDS ORDERED: Acetaminophen 325 MG TAB PO PRN (15:52)
[2020-06-20] MEDS ORDERED: Acetaminophen 650 MG Suppository PR PRN (15:52)
[2020-06-20] MEDS ORDERED: Ondansetron ODT 4 MG TAB PO PRN (15:52)
[2020-06-20 16:14] VITALS: BMI 26.4
[2020-06-20 19:58] LABS: SARS-CoV-2 NAA Rapid Test Not Detected (NotDetected)
[2020-06-20] MEDS: Rosuvastatin 20 MG TAB PO SCH (20:12)
[2020-06-21] MEDS: Vancomycin HCl 25 MG/ML Oral PO SCH ×4 (05:10→23:57)
[2020-06-21 06:38] LABS: #Eosinphils 0.2 thou/uL (0.0-0.7); #Lymphocytes 1.5 thou/uL (1.20-3.40); #Monocytes 0.8 thou/uL (0.11-0.59); #Neutrophils 6.3 thou/uL (1.40-6.50); %Basophils 0.5 % (0.0-1.0); %Eosinophils 1.8 % (0.0-10.0); %Lymphocytes 17.1 % (21.0-51.0); %Monocytes 8.7 % (0.0-10.0); %Neutrophils 71.9 % (42.0-75.0); Hemoglobin 11.8 g/dL (14.0-18.0); Mean Corpuscular HGB CONC 32.3 g/dL (32.0-36.0); Mean Corpuscular Hemoglobin 27.1 pg (27.0-31.0); Mean Platelet Volume 8.1 fL (7.4-10.4); Platelet Count 135 thou/uL (130-400); RBC Distribution Width 13.7 % (11.5-14.5); Red Blood Cell (RBC) Count 4.36 mill/uL (4.70-6.10); White Blood Cell (WBC) Count 8.8 thou/uL (4.8-10.8)
[2020-06-21 06:59] LABS: Anion Gap 12 mmol/L (10-20); BUN (Urea Nitrogen) 16 mg/dL (8.4-25.7); Calc. Creatinine Clearance 44 mL/min (70-130); Calcium 7.8 mg/dL (7.8-10.44); Carbon Dioxide 21 mmol/L (23-31); Chloride 107 mmol/L (98-107); Glucose 93 mg/dL (83-110); Potassium 3.8 mmol/L (3.5-5.1); Sodium 136 mmol/L (136-145)
[2020-06-21] MEDS: Ezetimibe 10 MG TAB PO SCH (08:49)
[2020-06-21] MEDS: Rosuvastatin 20 MG TAB PO SCH (20:31)
[2020-06-21] MEDS ORDERED: Nebivolol HCl 5 MG TAB PO SCH (21:30)
[2020-06-21] MEDS ORDERED: Lisinopril 5 MG TAB PO SCH (21:30)
[2020-06-22 05:52] LABS: #Eosinphils 0.2 thou/uL (0.0-0.7); #Lymphocytes 1.3 thou/uL (1.20-3.40); #Monocytes 0.6 thou/uL (0.11-0.59); #Neutrophils 5.2 thou/uL (1.40-6.50); %Basophils 0.6 % (0.0-1.0); %Eosinophils 2.9 % (0.0-10.0); %Lymphocytes 17.5 % (21.0-51.0); %Monocytes 8.5 % (0.0-10.0); %Neutrophils 70.5 % (42.0-75.0); Hemoglobin 12.3 g/dL (14.0-18.0); Mean Corpuscular HGB CONC 33.3 g/dL (32.0-36.0); Mean Corpuscular Hemoglobin 27.6 pg (27.0-31.0); Mean Corpuscular Volume 82.8 fL (78.0-98.0); Platelet Count 150 thou/uL (130-400); RBC Distribution Width 13.6 % (11.5-14.5); Red Blood Cell (RBC) Count 4.45 mill/uL (4.70-6.10); White Blood Cell (WBC) Count 7.3 thou/uL (4.8-10.8)
[2020-06-22] MEDS: Vancomycin HCl 25 MG/ML Oral PO SCH ×4 (06:06→23:13)
[2020-06-22 06:11] LABS: Anion Gap 11 mmol/L (10-20); BUN (Urea Nitrogen) 18 mg/dL (8.4-25.7); Calc. Creatinine Clearance 43 mL/min (70-130); Calcium 8.1 mg/dL (7.8-10.44); Carbon Dioxide 23 mmol/L (23-31); Chloride 108 mmol/L (98-107); Glucose 97 mg/dL (83-110); Potassium 3.9 mmol/L (3.5-5.1); Sodium 138 mmol/L (136-145)
[2020-06-22] MEDS: Ondansetron PF 4 MG/2 ML Vial IVP PRN (09:26)
[2020-06-22] MEDS: Ezetimibe 10 MG TAB PO SCH (09:27)
[2020-06-22] MEDS ORDERED: Nebivolol HCl 5 MG TAB PO SCH (10:45)
[2020-06-22] MEDS ORDERED: Lisinopril 5 MG TAB PO SCH ×2 (10:45→21:00)
[2020-06-22] MEDS: Sodium Chloride 0.9% 1,000 ML IV SCH (13:30)
[2020-06-22] MEDS: Enoxaparin Sodium 30 MG/0.3 ML SYRINGE SC SCH (19:55)
[2020-06-22] MEDS: Rosuvastatin 20 MG TAB PO SCH (19:55)
[2020-06-22] MEDS: Cholestyramine/Aspartame 4 gm Packet PO SCH (22:04)
[2020-06-23] MEDS: Sodium Chloride 0.9% 1,000 ML IV SCH ×3 (02:24→20:09)
[2020-06-23] MEDS: Vancomycin HCl 25 MG/ML Oral PO SCH ×3 (05:11→17:51)
[2020-06-23 06:17] LABS: #Eosinphils 0.2 thou/uL (0.0-0.7); #Lymphocytes 1.3 thou/uL (1.20-3.40); #Monocytes 0.5 thou/uL (0.11-0.59); #Neutrophils 4.5 thou/uL (1.40-6.50); %Basophils 0.1 % (0.0-1.0); %Eosinophils 3.5 % (0.0-10.0); %Lymphocytes 20.3 % (21.0-51.0); %Monocytes 7.9 % (0.0-10.0); %Neutrophils 68.2 % (42.0-75.0); Mean Corpuscular HGB CONC 30.7 g/dL (32.0-36.0); Mean Corpuscular Hemoglobin 25.6 pg (27.0-31.0); Mean Corpuscular Volume 83.3 fL (78.0-98.0); Mean Platelet Volume 8.2 fL (7.4-10.4); Platelet Count 156 thou/uL (130-400); RBC Distribution Width 13.6 % (11.5-14.5); Red Blood Cell (RBC) Count 5.08 mill/uL (4.70-6.10); White Blood Cell (WBC) Count 6.6 thou/uL (4.8-10.8)
[2020-06-23 06:37] LABS: Anion Gap 14 mmol/L (10-20); BUN (Urea Nitrogen) 17 mg/dL (8.4-25.7); Calc. Creatinine Clearance 46 mL/min (70-130); Calcium 7.9 mg/dL (7.8-10.44); Carbon Dioxide 18 mmol/L (23-31); Chloride 111 mmol/L (98-107); Glucose 86 mg/dL (83-110); Potassium 3.7 mmol/L (3.5-5.1); Sodium 139 mmol/L (136-145)
[2020-06-23] MEDS: Cholestyramine/Aspartame 4 gm Packet PO SCH ×2 (08:23→20:09)
[2020-06-23] MEDS: Lisinopril 5 MG TAB PO SCH (08:23)
[2020-06-23] MEDS: Nebivolol HCl 5 MG TAB PO SCH (08:23)
[2020-06-23] MEDS: Ezetimibe 10 MG TAB PO SCH (08:24)
[2020-06-23] MEDS: Ondansetron PF 4 MG/2 ML Vial IVP PRN (08:26)
[2020-06-23] MEDS: Enoxaparin Sodium 30 MG/0.3 ML SYRINGE SC SCH (20:08)
[2020-06-23] MEDS: Rosuvastatin 20 MG TAB PO SCH (20:09)
[2020-06-24] MEDS: Vancomycin HCl 25 MG/ML Oral PO SCH ×4 (00:04→19:00)
[2020-06-24] MEDS: Sodium Chloride 0.9% 1,000 ML IV SCH (05:39)
[2020-06-24 07:02] LABS: #Basophils 0.1 thou/uL (0.0-0.2); #Eosinphils 0.3 thou/uL (0.0-0.7); #Lymphocytes 1.8 thou/uL (1.20-3.40); #Monocytes 0.5 thou/uL (0.11-0.59); %Basophils 0.7 % (0.0-1.0); %Eosinophils 4.4 % (0.0-10.0); %Lymphocytes 23.7 % (21.0-51.0); %Monocytes 6.8 % (0.0-10.0); %Neutrophils 64.4 % (42.0-75.0); Mean Corpuscular HGB CONC 32.7 g/dL (32.0-36.0); Mean Corpuscular Hemoglobin 27.3 pg (27.0-31.0); Mean Corpuscular Volume 83.5 fL (78.0-98.0); Mean Platelet Volume 8.2 fL (7.4-10.4); Platelet Count 162 thou/uL (130-400); RBC Distribution Width 13.5 % (11.5-14.5); Red Blood Cell (RBC) Count 4.77 mill/uL (4.70-6.10); White Blood Cell (WBC) Count 7.8 thou/uL (4.8-10.8)
[2020-06-24 07:10] LABS: Anion Gap 14 mmol/L (10-20); BUN (Urea Nitrogen) 16 mg/dL (8.4-25.7); Calc. Creatinine Clearance 46 mL/min (70-130); Carbon Dioxide 19 mmol/L (23-31); Chloride 112 mmol/L (98-107); Glucose 90 mg/dL (83-110); Potassium 3.9 mmol/L (3.5-5.1); Sodium 141 mmol/L (136-145)
[2020-06-24] MEDS: Nebivolol HCl 5 MG TAB PO SCH (08:26)
[2020-06-24] MEDS: Lisinopril 5 MG TAB PO SCH (08:26)
[2020-06-24] MEDS: Ezetimibe 10 MG TAB PO SCH (08:26)
[2020-06-24] MEDS: Cholestyramine/Aspartame 4 gm Packet PO SCH ×2 (10:17→22:12)
[2020-06-24] MEDS: Rosuvastatin 20 MG TAB PO SCH (20:53)
[2020-06-24] MEDS: Enoxaparin Sodium 30 MG/0.3 ML SYRINGE SC SCH (20:54)
[2020-06-25] MEDS: Vancomycin HCl 25 MG/ML Oral PO SCH ×4 (00:01→17:24)
[2020-06-25 06:34] LABS: #Eosinphils 0.3 thou/uL (0.0-0.7); #Lymphocytes 1.7 thou/uL (1.20-3.40); #Monocytes 0.6 thou/uL (0.11-0.59); #Neutrophils 4.6 thou/uL (1.40-6.50); %Basophils 0.3 % (0.0-1.0); %Eosinophils 4.4 % (0.0-10.0); %Lymphocytes 23.7 % (21.0-51.0); %Monocytes 7.6 % (0.0-10.0); Hemoglobin 12.1 g/dL (14.0-18.0); Mean Corpuscular HGB CONC 33.2 g/dL (32.0-36.0); Mean Corpuscular Hemoglobin 27.7 pg (27.0-31.0); Mean Corpuscular Volume 83.5 fL (78.0-98.0); Mean Platelet Volume 8.2 fL (7.4-10.4); Platelet Count 161 thou/uL (130-400); RBC Distribution Width 13.3 % (11.5-14.5); Red Blood Cell (RBC) Count 4.38 mill/uL (4.70-6.10); White Blood Cell (WBC) Count 7.2 thou/uL (4.8-10.8)
[2020-06-25 06:52] LABS: Anion Gap 12 mmol/L (10-20); BUN (Urea Nitrogen) 16 mg/dL (8.4-25.7); Calc. Creatinine Clearance 52 mL/min (70-130); Calcium 7.7 mg/dL (7.8-10.44); Carbon Dioxide 18 mmol/L (23-31); Chloride 114 mmol/L (98-107); Glucose 85 mg/dL (83-110); Potassium 4.1 mmol/L (3.5-5.1); Sodium 140 mmol/L (136-145)
[2020-06-25] MEDS: Sodium Chloride 0.9% 1,000 ML IV SCH ×2 (08:35→21:25)
[2020-06-25] MEDS: Nebivolol HCl 5 MG TAB PO SCH (08:35)
[2020-06-25] MEDS: Lisinopril 5 MG TAB PO SCH (08:36)
[2020-06-25] MEDS: Ezetimibe 10 MG TAB PO SCH (08:36)
[2020-06-25] MEDS: Cholestyramine/Aspartame 4 gm Packet PO SCH ×2 (11:10→22:55)
[2020-06-25] MEDS: Rosuvastatin 20 MG TAB PO SCH (21:25)
[2020-06-25] MEDS: Enoxaparin Sodium 30 MG/0.3 ML SYRINGE SC SCH (21:25)
[2020-06-25] MEDS ORDERED: Lidocaine 2% Viscous Solution 10 ML, Aluminum & Magnesium Hydroxide 30 ML SSW SCH (23:15)
[2020-06-26] MEDS: Vancomycin HCl 25 MG/ML Oral PO SCH ×3 (00:43→12:09)
[2020-06-26] MEDS ORDERED: Lidocaine 2% Viscous Solution 10 ML, Aluminum & Magnesium Hydroxide 30 ML SSW SCH (01:30)
[2020-06-26] MEDS: Lisinopril 5 MG TAB PO SCH (08:37)
[2020-06-26] MEDS: Ezetimibe 10 MG TAB PO SCH (08:38)
[2020-06-26 09:43] VITALS: TEMP 97.6
[2020-06-26] MEDS: Nebivolol HCl 5 MG TAB PO SCH (10:38)
[2020-06-26] MEDS: Sodium Chloride 0.9% 1,000 ML IV SCH (11:11)
[2020-06-26] MEDS: Cholestyramine/Aspartame 4 gm Packet PO SCH (11:41)
[2020-06-26 12:35] VITALS: BP 168/75
== END 2020-06-26 12:21 | disposition home or self-care (01) | DRG 372 ==
LOC: ERS 11:49 → T4-B 14:56
PROVIDERS: ADMIT Internal Medicine; ATTEND Internal Medicine
DX: A04.72 Enterocolitis due to Clostridium difficile, not specified as recurrent (principal); N17.9 Acute kidney failure, unspecified; K21.9 Gastro-esophageal reflux disease without esophagitis; Z20.822 Contact with and (suspected) exposure to COVID-19; E78.5 Hyperlipidemia, unspecified; E78.00 Pure hypercholesterolemia, unspecified; I10 Essential (primary) hypertension; C44.201 Unspecified malignant neoplasm of skin of unspecified ear and external auricular canal; I25.10 Atherosclerotic heart disease of native coronary artery without angina pectoris; R91.1 Solitary pulmonary nodule; E86.0 Dehydration; Z95.5 Presence of coronary angioplasty implant and graft; Z95.0 Presence of cardiac pacemaker; Z85.46 Personal history of malignant neoplasm of prostate; Z79.82 Long term (current) use of aspirin; Z79.899 Other long term (current) drug therapy; I25.2 Old myocardial infarction
CPT/HCPCS: 36415; 36416; 74177; 80048; 80053; 81003; 82270; 83605; 83630; 83690; 83735; 85025; 86850; 86900; 86901; 87045; 87046; 87324; 87328; 87329; 87427; 87449; 93005; 96374; C9113; J1650; J1956; J2405; Q9967; U0002

== ENCOUNTER 2020-07-14 10:14 | Inpatient (IN) | payer MEDICARE ==
[2020-07-14 15:08] LABS: #Lymphocytes 1.3 thou/uL (1.20-3.40); #Monocytes 0.9 thou/uL (0.11-0.59); %Basophils 0.3 % (0.0-1.0); %Eosinophils 0.3 % (0.0-10.0); %Lymphocytes 12.9 % (21.0-51.0); %Monocytes 8.7 % (0.0-10.0); %Neutrophils 77.8 % (42.0-75.0); Hemoglobin 13.4 g/dL (14.0-18.0); Mean Corpuscular HGB CONC 32.6 g/dL (32.0-36.0); Mean Corpuscular Hemoglobin 27.1 pg (27.0-31.0); Mean Platelet Volume 8.5 fL (7.4-10.4); Platelet Count 175 thou/uL (130-400); RBC Distribution Width 13.8 % (11.5-14.5); Red Blood Cell (RBC) Count 4.94 mill/uL (4.70-6.10); White Blood Cell (WBC) Count 10.3 thou/uL (4.8-10.8)
[2020-07-14 15:34] LABS: ALT (SGPT) 12 U/L (8-55); AST (SGOT) 11 U/L (5-34); Albumin 3.7 g/dL (3.4-4.8); Alkaline Phosphatase 85 U/L (40-110); Anion Gap 13 mmol/L (10-20); BUN (Urea Nitrogen) 16 mg/dL (8.4-25.7); Bilirubin, Total 0.7 mg/dL (0.2-1.2); Calc. Creatinine Clearance 0 mL/min (70-130); Calcium 8.7 mg/dL (7.8-10.44); Carbon Dioxide 24 mmol/L (23-31); Chloride 106 mmol/L (98-107); Globulin 2.2 g/dL (2.4-3.5); Glucose 112 mg/dL (83-110); Lipase 7 U/L (8-78); Potassium 4.4 mmol/L (3.5-5.1); Protein, Total 5.9 g/dL (5.8-8.1); Sodium 139 mmol/L (136-145)
[2020-07-14 19:20] VITALS: BMI 27.3
[2020-07-14] MEDS: Sodium Chloride 0.9% 1,000 ML IV SCH (20:17)
[2020-07-14] MEDS ORDERED: Ondansetron PF 4 MG/2 ML Vial IVP PRN (20:26)
[2020-07-14] MEDS ORDERED: Acetaminophen 325 MG TAB PO PRN (20:26)
[2020-07-14] MEDS ORDERED: Ondansetron ODT 4 MG TAB PO PRN (20:26)
[2020-07-14] MEDS ORDERED: Acetaminophen 650 MG Suppository PR PRN (20:26)
[2020-07-14 21:18] LABS: Bacteria/HPF None Seen HPF (None Seen); Bilirubin Negative (Negative); Blood, Urine Trace (Negative); Clarity Clear (Clear); Glucose, Urine (Dipstick) Normal (Negative); Ketone, Urine Negative (Negative); Leukocyte Negative Leu/uL (Negative); Nitrite Negative (Negative); Protein, Urine (Dipstick) 30 mg/dL (Neg-Trace); RBC/HPF 0-3 HPF (0-3); Specific Gravity, Urine 1.024 (1.002-1.036); Squamous Epithelial 0-3 HPF (0-3); Urobilinogen Normal mg/dL (Less than 2); pH, Urine 5.5 (5.0-9.0)
[2020-07-14] MEDS: Vancomycin HCl 25 MG/ML Oral PO SCH (22:58)
[2020-07-15] MEDS: Sodium Chloride 0.9% 1,000 ML IV SCH (03:58)
[2020-07-15] MEDS: Vancomycin HCl 25 MG/ML Oral PO SCH ×3 (05:28→17:44)
[2020-07-15 06:06] LABS: #Eosinphils 0.2 thou/uL (0.0-0.7); #Lymphocytes 1.2 thou/uL (1.20-3.40); #Monocytes 0.8 thou/uL (0.11-0.59); #Neutrophils 4.6 thou/uL (1.40-6.50); %Basophils 0.4 % (0.0-1.0); %Eosinophils 2.4 % (0.0-10.0); %Lymphocytes 17.6 % (21.0-51.0); %Neutrophils 67.7 % (42.0-75.0); Hemoglobin 11.1 g/dL (14.0-18.0); Mean Corpuscular HGB CONC 32.4 g/dL (32.0-36.0); Mean Corpuscular Hemoglobin 26.9 pg (27.0-31.0); Mean Corpuscular Volume 82.9 fL (78.0-98.0); Mean Platelet Volume 8.5 fL (7.4-10.4); Platelet Count 145 thou/uL (130-400); RBC Distribution Width 13.8 % (11.5-14.5); Red Blood Cell (RBC) Count 4.13 mill/uL (4.70-6.10); White Blood Cell (WBC) Count 6.8 thou/uL (4.8-10.8)
[2020-07-15 06:24] LABS: Anion Gap 10 mmol/L (10-20); BUN (Urea Nitrogen) 15 mg/dL (8.4-25.7); Calc. Creatinine Clearance 42 mL/min (70-130); Calcium 7.8 mg/dL (7.8-10.44); Carbon Dioxide 21 mmol/L (23-31); Chloride 112 mmol/L (98-107); Glucose 99 mg/dL (83-110); Potassium 3.8 mmol/L (3.5-5.1); Sodium 139 mmol/L (136-145)
[2020-07-15] MEDS ORDERED: Bicalutamide 50 MG TAB PO SCH (08:45)
[2020-07-15] MEDS: Lisinopril 5 MG TAB PO SCH (09:54)
[2020-07-15] MEDS: Aspirin Chewable 81 MG TAB PO SCH (09:54)
[2020-07-15] MEDS: Enoxaparin Sodium 40 MG/0.4 ML SYRINGE SC SCH (09:55)
[2020-07-15] MEDS ORDERED: Rosuvastatin 20 MG TAB PO SCH (21:00)
[2020-07-15] MEDS ORDERED: Ezetimibe 10 MG TAB PO SCH (21:00)
[2020-07-15] MEDS ORDERED: Nebivolol HCl 5 MG TAB PO SCH (21:00)
[2020-07-15] MEDS: Saccharomyces boulardii 250 MG CAP PO SCH (21:39)
[2020-07-16] MEDS: Vancomycin HCl 25 MG/ML Oral PO SCH ×3 (00:20→11:58)
[2020-07-16] MEDS ORDERED: Bicalutamide 50 MG TAB PO SCH (08:00)
[2020-07-16] MEDS: Enoxaparin Sodium 40 MG/0.4 ML SYRINGE SC SCH (08:46)
[2020-07-16] MEDS: Aspirin Chewable 81 MG TAB PO SCH (08:46)
[2020-07-16] MEDS: Saccharomyces boulardii 250 MG CAP PO SCH (08:46)
[2020-07-16] MEDS: Lisinopril 5 MG TAB PO SCH (08:46)
[2020-07-16 12:19] VITALS: BP 134/69; TEMP 98.1
== END 2020-07-16 12:30 | disposition home or self-care (01) | DRG 372 ==
LOC: ERS 10:14 → T4-A 16:22
PROVIDERS: ADMIT Internal Medicine; ATTEND Internal Medicine
DX: A04.71 Enterocolitis due to Clostridium difficile, recurrent (principal); N17.9 Acute kidney failure, unspecified; I10 Essential (primary) hypertension; C61 Malignant neoplasm of prostate; I25.10 Atherosclerotic heart disease of native coronary artery without angina pectoris; E78.00 Pure hypercholesterolemia, unspecified; C44.201 Unspecified malignant neoplasm of skin of unspecified ear and external auricular canal; Z95.0 Presence of cardiac pacemaker; Z95.5 Presence of coronary angioplasty implant and graft; Z85.89 Personal history of malignant neoplasm of other organs and systems; Z79.82 Long term (current) use of aspirin; Z79.899 Other long term (current) drug therapy; Z90.79 Acquired absence of other genital organ(s)
CPT/HCPCS: 36415; 80048; 80053; 81001; 83690; 85025; 99284; J1650

== ENCOUNTER 2021-02-01 11:23 | Emergency (ER) | payer MEDICARE ==
[2021-02-01 12:49] LABS: #Basophils 0.1 thou/uL (0.0-0.2); #Eosinphils 0.1 thou/uL (0.0-0.7); #Lymphocytes 1.1 thou/uL (1.20-3.40); #Monocytes 0.4 thou/uL (0.11-0.59); #Neutrophils 6.4 thou/uL (1.40-6.50); %Basophils 1.3 % (0.0-1.0); %Eosinophils 0.7 % (0.0-10.0); %Lymphocytes 13.6 % (21.0-51.0); %Monocytes 4.6 % (0.0-10.0); %Neutrophils 79.8 % (42.0-75.0); Hemoglobin 13.5 g/dL (14.0-18.0); Mean Corpuscular HGB CONC 32.9 g/dL (32.0-36.0); Mean Corpuscular Hemoglobin 26.9 pg (27.0-31.0); Mean Corpuscular Volume 81.9 fL (78.0-98.0); Mean Platelet Volume 8.1 fL (7.4-10.4); Platelet Count 146 thou/uL (130-400); White Blood Cell (WBC) Count 8.1 thou/uL (4.8-10.8)
[2021-02-01 13:09] LABS: ALT (SGPT) 22 U/L (8-55); AST (SGOT) 22 U/L (5-34); Albumin 3.9 g/dL (3.4-4.8); Alkaline Phosphatase 84 U/L (40-110); Anion Gap 12 mmol/L (10-20); BUN (Urea Nitrogen) 29 mg/dL (8.4-25.7); Bilirubin, Total 0.5 mg/dL (0.2-1.2); Calc. Creatinine Clearance 0 mL/min (70-130); Carbon Dioxide 28 mmol/L (23-31); Chloride 105 mmol/L (98-107); Globulin 2.1 g/dL (2.4-3.5); Glucose 105 mg/dL (83-110); Potassium 4.9 mmol/L (3.5-5.1); Sodium 140 mmol/L (136-145)
== END 2021-02-01 15:06 | disposition home or self-care (01) ==
LOC: ERS 11:23
DX: E86.0 Dehydration (principal); E86.1 Hypovolemia; R29.700 NIHSS score 0; R94.4 Abnormal results of kidney function studies; I44.7 Left bundle-branch block, unspecified; I49.8 Other specified cardiac arrhythmias; I10 Essential (primary) hypertension; E78.5 Hyperlipidemia, unspecified; E78.00 Pure hypercholesterolemia, unspecified; Z79.82 Long term (current) use of aspirin; Z79.899 Other long term (current) drug therapy
CPT/HCPCS: 80053; 85025; 93005; 94760

== ENCOUNTER 2021-02-03 14:33 | Inpatient (IN) | payer MEDICARE ==
[2021-02-03 15:15] LABS: #Eosinphils 0.2 thou/uL (0.0-0.7); #Lymphocytes 1.1 thou/uL (1.20-3.40); #Monocytes 0.3 thou/uL (0.11-0.59); #Neutrophils 4.5 thou/uL (1.40-6.50); %Basophils 0.2 % (0.0-1.0); %Eosinophils 2.5 % (0.0-10.0); %Lymphocytes 17.5 % (21.0-51.0); %Monocytes 5.1 % (0.0-10.0); %Neutrophils 74.7 % (42.0-75.0); Hemoglobin 12.9 g/dL (14.0-18.0); Mean Corpuscular HGB CONC 32.9 g/dL (32.0-36.0); Mean Corpuscular Hemoglobin 27.4 pg (27.0-31.0); Mean Corpuscular Volume 83.3 fL (78.0-98.0); Mean Platelet Volume 8.8 fL (7.4-10.4); Platelet Count 155 thou/uL (130-400); RBC Distribution Width 15.1 % (11.5-14.5); Red Blood Cell (RBC) Count 4.69 mill/uL (4.70-6.10); White Blood Cell (WBC) Count 6.1 thou/uL (4.8-10.8)
[2021-02-03 15:37] LABS: ALT (SGPT) 24 U/L (8-55); AST (SGOT) 27 U/L (5-34); Albumin 3.8 g/dL (3.4-4.8); Alkaline Phosphatase 84 U/L (40-110); Anion Gap 15 mmol/L (10-20); BUN (Urea Nitrogen) 27 mg/dL (8.4-25.7); Bilirubin, Total 0.5 mg/dL (0.2-1.2); Calc. Creatinine Clearance 0 mL/min (70-130); Calcium 8.9 mg/dL (7.8-10.44); Carbon Dioxide 25 mmol/L (23-31); Chloride 106 mmol/L (98-107); Globulin 2.6 g/dL (2.4-3.5); Glucose 105 mg/dL (83-110); Potassium 5.3 mmol/L (3.5-5.1); Protein, Total 6.4 g/dL (5.8-8.1); Sodium 141 mmol/L (136-145)
[2021-02-03] MEDS ORDERED: Acetaminophen 325 MG TAB PO PRN (17:49)
[2021-02-03] MEDS ORDERED: Bisacodyl 5 MG TAB PO PRN (17:49)
[2021-02-03] MEDS ORDERED: Bisacodyl 10 MG SUPP PR PRN (17:49)
[2021-02-03] MEDS ORDERED: Ondansetron PF 4 MG/2 ML Vial IVP PRN (17:49)
[2021-02-03] MEDS ORDERED: Senokot S 8.6-50 MG TAB PO PRN (17:49)
[2021-02-03 18:40] LABS: Troponin I Less than 0.010 ng/mL (< 0.028)
[2021-02-03 19:23] VITALS: BMI 27.7
[2021-02-03 21:00] LABS: Anion Gap 12 mmol/L (10-20); BUN (Urea Nitrogen) 28 mg/dL (8.4-25.7); Calc. Creatinine Clearance 40 mL/min (70-130); Calcium 7.8 mg/dL (7.8-10.44); Carbon Dioxide 21 mmol/L (23-31); Chloride 111 mmol/L (98-107); Glucose 102 mg/dL (83-110); Potassium 4.3 mmol/L (3.5-5.1); Sodium 140 mmol/L (136-145)
[2021-02-03 21:06] LABS: Troponin I Less than 0.010 ng/mL (< 0.028)
[2021-02-03 21:25] LABS: SARS-CoV-2 NAA Rapid Test Not Detected (NotDetected)
[2021-02-03] MEDS: Atorvastatin Calcium 40 MG TAB PO SCH (21:31)
[2021-02-04 05:04] LABS: #Eosinphils 0.3 thou/uL (0.0-0.7); #Lymphocytes 1.6 thou/uL (1.20-3.40); #Monocytes 0.5 thou/uL (0.11-0.59); %Basophils 0.1 % (0.0-1.0); %Eosinophils 5.1 % (0.0-10.0); %Lymphocytes 29.8 % (21.0-51.0); %Monocytes 8.8 % (0.0-10.0); %Neutrophils 56.2 % (42.0-75.0); Hemoglobin 11.2 g/dL (14.0-18.0); Mean Corpuscular Hemoglobin 26.6 pg (27.0-31.0); Mean Corpuscular Volume 83.3 fL (78.0-98.0); Mean Platelet Volume 8.7 fL (7.4-10.4); Platelet Count 130 thou/uL (130-400); RBC Distribution Width 15.3 % (11.5-14.5); White Blood Cell (WBC) Count 5.4 thou/uL (4.8-10.8)
[2021-02-04 05:08] LABS: Hemoglobin A1c 5.6 % (4.0-6.0)
[2021-02-04 05:24] LABS: ALT (SGPT) 21 U/L (8-55); AST (SGOT) 18 U/L (5-34); Albumin 3.1 g/dL (3.4-4.8); Alkaline Phosphatase 71 U/L (40-110); Anion Gap 10 mmol/L (10-20); BUN (Urea Nitrogen) 26 mg/dL (8.4-25.7); Bilirubin, Total 0.5 mg/dL (0.2-1.2); Calc. Creatinine Clearance 45 mL/min (70-130); Calcium 8.5 mg/dL (7.8-10.44); Carbon Dioxide 24 mmol/L (23-31); Cardiac Risk 2.5 (Less than 4.5); Chloride 110 mmol/L (98-107); Cholesterol 105 mg/dl (< 200 Desired); Globulin 1.7 g/dL (2.4-3.5); Glucose 100 mg/dL (83-110); HDL Cholesterol 42 mg/dL (>60 Neg Risk); LDL Cholesterol, Calculated 53 mg/dL; Magnesium 2.2 mg/dL (1.6-2.6); Phosphorus 3.2 mg/dL (2.3-4.7); Potassium 4.3 mmol/L (3.5-5.1); Protein, Total 4.8 g/dL (5.8-8.1); Sodium 140 mmol/L (136-145); Triglycerides 49 mg/dL (Less than 150)
[2021-02-04] MEDS ORDERED: FLU VACC QS2021-22(65YR UP)/PF 240 MCG/0.7 ML SYRINGE IM ONE (09:00)
[2021-02-04] MEDS: Aspirin Chewable 81 MG TAB PO SCH (10:22)
[2021-02-04] MEDS ORDERED: Gentamicin 80 MG/2 ML VIAL ONE (13:54)
[2021-02-04] MEDS ORDERED: ceFAZolin 2 GM/DEX 5% 100 ML BAG ONE (13:54)
[2021-02-04] MEDS ORDERED: Lidocaine 1% (PF) 30 ML VIAL ONE (13:54)
[2021-02-04] MEDS ORDERED: CEFAZOLIN 1 GM VIAL ONE (13:54)
[2021-02-04] MEDS ORDERED: Fentanyl 100 MCG/2 ML VIAL ONE (14:33)
[2021-02-04] MEDS ORDERED: Midazolam HCl 2 mg/2 ml Vial ONE (14:33)
[2021-02-04] MEDS ORDERED: hydrALAZINE 20 MG/ML VIAL SLOW IVP PRN (18:42)
[2021-02-04] MEDS: Atorvastatin Calcium 40 MG TAB PO SCH (20:00)
[2021-02-05 05:09] LABS: #Eosinphils 0.3 thou/uL (0.0-0.7); #Lymphocytes 1.5 thou/uL (1.20-3.40); #Monocytes 0.4 thou/uL (0.11-0.59); #Neutrophils 3.9 thou/uL (1.40-6.50); %Basophils 0.5 % (0.0-1.0); %Eosinophils 4.6 % (0.0-10.0); %Lymphocytes 24.4 % (21.0-51.0); %Monocytes 7.3 % (0.0-10.0); %Neutrophils 63.2 % (42.0-75.0); Hemoglobin 11.3 g/dL (14.0-18.0); Mean Corpuscular HGB CONC 32.6 g/dL (32.0-36.0); Mean Corpuscular Hemoglobin 26.8 pg (27.0-31.0); Mean Corpuscular Volume 82.2 fL (78.0-98.0); Mean Platelet Volume 8.5 fL (7.4-10.4); Platelet Count 133 thou/uL (130-400); Red Blood Cell (RBC) Count 4.23 mill/uL (4.70-6.10); White Blood Cell (WBC) Count 6.1 thou/uL (4.8-10.8)
[2021-02-05 05:31] LABS: ALT (SGPT) 15 U/L (8-55); AST (SGOT) 15 U/L (5-34); Albumin 3.2 g/dL (3.4-4.8); Alkaline Phosphatase 73 U/L (40-110); Anion Gap 9 mmol/L (10-20); BUN (Urea Nitrogen) 27 mg/dL (8.4-25.7); Bilirubin, Total 0.5 mg/dL (0.2-1.2); Calc. Creatinine Clearance 43 mL/min (70-130); Calcium 8.5 mg/dL (7.8-10.44); Carbon Dioxide 26 mmol/L (23-31); Chloride 110 mmol/L (98-107); Globulin 1.8 g/dL (2.4-3.5); Glucose 90 mg/dL (83-110); Magnesium 2.2 mg/dL (1.6-2.6); Phosphorus 3.3 mg/dL (2.3-4.7); Potassium 4.3 mmol/L (3.5-5.1); Sodium 141 mmol/L (136-145)
[2021-02-05 08:34] VITALS: TEMP 97.8
[2021-02-05] MEDS: Aspirin Chewable 81 MG TAB PO SCH (08:34)
[2021-02-05] MEDS ORDERED: Nebivolol HCl 5 MG TAB PO SCH (09:00)
[2021-02-05] MEDS ORDERED: Lisinopril 5 MG TAB PO SCH (09:00)
[2021-02-05 11:46] VITALS: BP 201/85
== END 2021-02-05 12:03 | disposition home or self-care (01) | DRG 259 ==
LOC: SUATTDRO 14:33 → ERS 14:33 → 2SW 17:49 → OBSVTOIN 02-05 08:54
PROVIDERS: ADMIT Family Medicine; ATTEND Family Medicine
PROC: 0JH606Z Insertion of Pacemaker, Dual Chamber into Chest Subcutaneous Tissue and Fascia, Open Approach (ICD-10-PCS; principal; 2021-02-04)
PROC: 0JPT0PZ Removal of Cardiac Rhythm Related Device from Trunk Subcutaneous Tissue and Fascia, Open Approach (ICD-10-PCS; 2021-02-04)
DX: Z45.010 Encounter for checking and testing of cardiac pacemaker pulse generator [battery] (principal); I50.22 Chronic systolic (congestive) heart failure; N17.9 Acute kidney failure, unspecified; I13.0 Hypertensive heart and chronic kidney disease with heart failure and stage 1 through stage 4 chronic kidney disease, or unspecified chronic kidney disease; Z20.822 Contact with and (suspected) exposure to COVID-19; K21.9 Gastro-esophageal reflux disease without esophagitis; N40.0 Benign prostatic hyperplasia without lower urinary tract symptoms; R41.3 Other amnesia; C61 Malignant neoplasm of prostate; E87.5 Hyperkalemia; N18.32 Chronic kidney disease, stage 3b; Z87.891 Personal history of nicotine dependence; Z79.899 Other long term (current) drug therapy; Z79.82 Long term (current) use of aspirin
CPT/HCPCS: 33228; 36415; 70450; 71045; 80053; 80061; 83036; 83735; 83880; 84100; 84484; 85025; 93005; 93010; 93306; 93798; 96374; 99152; 99153; G0378; J0360; J0690; J1580; J2001; J2250; J3010; U0002

== ENCOUNTER 2022-02-19 13:31 | Inpatient (IN) | payer MEDICARE ==
[2022-02-19] MEDS ORDERED: Senokot S 8.6-50 MG TAB PO PRN (15:31)
[2022-02-19] MEDS ORDERED: Bisacodyl 5 MG TAB PO PRN (15:31)
[2022-02-19] MEDS ORDERED: oxyCODONE 5 MG TAB PO PRN (15:35)
[2022-02-19] MEDS ORDERED: diphenhydrAMINE 25 MG CAP PO PRN (15:35)
[2022-02-19 15:39] LABS: SARS-CoV-2 NAA Rapid Test Not Detected (NotDetected)
[2022-02-19 15:46] VITALS: BMI 25.8
[2022-02-19] MEDS ORDERED: Piperacillin/Tazobactam 3.375 GM in Sodium Chloride 0.9% 100 ML IVPB SCH ×2 (16:15→18:00)
[2022-02-19] MEDS ORDERED: Apixaban 2.5 MG TAB PO SCH (21:00)
[2022-02-19] MEDS: Trospium 20 MG TAB PO SCH (22:08)
[2022-02-19] MEDS: Acetaminophen 500 MG TAB PO SCH (22:08)
[2022-02-19] MEDS: Rosuvastatin 20 MG TAB PO SCH (22:09)
[2022-02-19] MEDS: Piperacillin/Tazobactam 3.375 GM in Sodium Chloride 0.9% 100 ML IVPB SCH (22:09)
[2022-02-19] MEDS: Famotidine 20 MG TAB PO SCH (22:09)
[2022-02-19] MEDS: Heparin 5,000 UNITS/ML VIAL SC SCH (22:10)
[2022-02-20] MEDS: Piperacillin/Tazobactam 3.375 GM in Sodium Chloride 0.9% 100 ML IVPB SCH ×4 (05:21→21:17)
[2022-02-20 06:49] LABS: #Eosinphils 0.1 thou/uL (0.0-0.7); #Lymphocytes 1.4 thou/uL (1.20-3.40); #Monocytes 0.6 thou/uL (0.11-0.59); #Neutrophils 4.9 thou/uL (1.40-6.50); %Basophils 0.2 % (0.0-1.0); %Eosinophils 1.1 % (0.0-10.0); %Lymphocytes 20.3 % (21.0-51.0); %Neutrophils 69.3 % (42.0-75.0); Hemoglobin 11.7 g/dL (14.0-18.0); Mean Corpuscular HGB CONC 30.8 g/dL (32.0-36.0); Mean Corpuscular Hemoglobin 26.6 pg (27.0-31.0); Mean Corpuscular Volume 86.3 fl (78.0-98.0); Mean Platelet Volume 8.2 fL (7.4-10.4); Platelet Count 158 10x3/uL (130-400); RBC Distribution Width 14.3 % (11.5-14.5); Red Blood Cell (RBC) Count 4.42 mill/uL (4.70-6.10); White Blood Cell (WBC) Count 7.1 10x3/uL (4.8-10.8)
[2022-02-20 07:04] LABS: Anion Gap 12 mmol/L (10-20); BUN (Urea Nitrogen) 25 mg/dL (8.4-25.7); Calc. Creatinine Clearance 38 mL/min (70-130); Calcium 8.7 mg/dL (7.8-10.44); Carbon Dioxide 22 mmol/L (23-31); Chloride 111 mmol/L (98-107); Estimated GFR 40; Glucose 95 mg/dL (83-110); Potassium 4.2 mmol/L (3.5-5.1); Sodium 141 mmol/L (136-145)
[2022-02-20] MEDS ORDERED: Dexamethasone 4 MG TAB PO SCH (08:00)
[2022-02-20] MEDS: Acetaminophen 500 MG TAB PO SCH ×3 (09:07→21:08)
[2022-02-20] MEDS: Heparin 5,000 UNITS/ML VIAL SC SCH ×4 (09:08→21:10)
[2022-02-20] MEDS: Ezetimibe 10 MG TAB PO SCH (09:08)
[2022-02-20] MEDS: Lisinopril 5 MG TAB PO SCH (09:09)
[2022-02-20] MEDS: Chlorhexidine Gluconate 15 ML UDCUP SSP SCH ×3 (09:10→21:08)
[2022-02-20] MEDS: Trospium 20 MG TAB PO SCH ×2 (09:10→21:09)
[2022-02-20] MEDS ORDERED: Lidocaine 1% (PF) 30 ML VIAL ONE (10:36)
[2022-02-20] MEDS ORDERED: Chlorhexidine Gluconate 15 ML UDCUP SSP ONE ×2 (10:36→10:37)
[2022-02-20] MEDS ORDERED: Hydrocortisone 1% Cream 30 GM TUBE ONE (10:36)
[2022-02-20] MEDS ORDERED: EPINEPHrine 1 MG/ML AMP ONE (10:37)
[2022-02-20] MEDS ORDERED: Lidocaine 2% 6 ML SYR ONE (10:40)
[2022-02-20] MEDS ORDERED: fentaNYL PF 100 MCG/2 ML SYRINGE ONE (10:40)
[2022-02-20] MEDS ORDERED: Oxymetazoline HCl 0.05% (30 ML BOT) ONE ×2 (10:40→10:52)
[2022-02-20] MEDS ORDERED: PROPOFOL 200 MG/20 ML VIAL ONE (11:04)
[2022-02-20] MEDS ORDERED: Ondansetron PF 4 MG/2 ML Vial ONE (11:04)
[2022-02-20] MEDS ORDERED: NEOSTIGMINE 3 MG/3 ML SYR 3 MG/3 ML SYRINGE ONE (11:04)
[2022-02-20] MEDS ORDERED: Rocuronium Bromide 10 MG/ML (10ML VIAL) ONE (11:04)
[2022-02-20] MEDS ORDERED: Dexamethasone 20 MG/5 ML VIAL ONE (11:04)
[2022-02-20] MEDS ORDERED: Glycopyrrolate 0.2 MG/ML 5 ML SYRINGE ONE (11:04)
[2022-02-20] MEDS ORDERED: SUGAMMADEX SODIUM 200 MG/2 ML VIAL ONE (11:49)
[2022-02-20] MEDS ORDERED: Non-Formulary Medication 1 EACH PO PRN (12:39)
[2022-02-20] MEDS ORDERED: Ondansetron HCl/PF 4 MG/2 ML Vial IVP PRN (12:45)
[2022-02-20] MEDS ORDERED: Promethazine HCl 25 MG/ML VIAL IM/IV PRN (12:45)
[2022-02-20] MEDS: Famotidine 20 MG TAB PO SCH (21:08)
[2022-02-20] MEDS: Rosuvastatin 20 MG TAB PO SCH (21:08)
[2022-02-21] MEDS: Piperacillin/Tazobactam 3.375 GM in Sodium Chloride 0.9% 100 ML IVPB SCH ×2 (05:53→14:08)
[2022-02-21 06:04] LABS: #Monocytes 0.5 thou/uL (0.11-0.59); #Neutrophils 8.5 thou/uL (1.40-6.50); %Lymphocytes 9.9 % (21.0-51.0); %Neutrophils 85.1 % (42.0-75.0); Hemoglobin 11.4 g/dL (14.0-18.0); Mean Corpuscular HGB CONC 31.8 g/dL (32.0-36.0); Mean Corpuscular Hemoglobin 26.6 pg (27.0-31.0); Mean Corpuscular Volume 83.7 fl (78.0-98.0); Platelet Count 193 10x3/uL (130-400)
[2022-02-21 06:22] LABS: Anion Gap 12 mmol/L (10-20); BUN (Urea Nitrogen) 28 mg/dL (8.4-25.7); Calc. Creatinine Clearance 34 mL/min (70-130); Calcium 8.7 mg/dL (7.8-10.44); Carbon Dioxide 23 mmol/L (23-31); Chloride 109 mmol/L (98-107); Estimated GFR 36; Glucose 121 mg/dL (83-110); Potassium 5.1 mmol/L (3.5-5.1); Sodium 139 mmol/L (136-145)
[2022-02-21] MEDS: Acetaminophen 500 MG TAB PO SCH ×2 (08:25→14:09)
[2022-02-21] MEDS: Lisinopril 5 MG TAB PO SCH (08:25)
[2022-02-21] MEDS: Ezetimibe 10 MG TAB PO SCH (08:25)
[2022-02-21] MEDS: Trospium 20 MG TAB PO SCH (08:26)
[2022-02-21] MEDS: Chlorhexidine Gluconate 15 ML UDCUP SSP SCH ×2 (08:26→14:09)
[2022-02-21] MEDS: Heparin 5,000 UNITS/ML VIAL SC SCH ×2 (08:27→14:09)
[2022-02-21] MEDS ORDERED: Empagliflozin 10 MG TAB PO SCH (09:00)
[2022-02-21 13:20] VITALS: BP 145/74; TEMP 97.8
[2022-02-24 11:15] LABS: Fungus Stain Final report (.)
== END 2022-02-21 18:25 | disposition home or self-care (01) | DRG 138 ==
LOC: 2NO 13:31 → MSONC 14:53
PROVIDERS: ADMIT Family Medicine; ATTEND Family Medicine
PROC: 0C940ZZ Drainage of Buccal Mucosa, Open Approach (ICD-10-PCS; principal; 2022-02-20)
DX: K12.2 Cellulitis and abscess of mouth (principal); Z20.822 Contact with and (suspected) exposure to COVID-19; K04.7 Periapical abscess without sinus; E78.5 Hyperlipidemia, unspecified; I12.9 Hypertensive chronic kidney disease with stage 1 through stage 4 chronic kidney disease, or unspecified chronic kidney disease; N18.30 Chronic kidney disease, stage 3 unspecified; I25.10 Atherosclerotic heart disease of native coronary artery without angina pectoris; R91.1 Solitary pulmonary nodule; Z85.828 Personal history of other malignant neoplasm of skin; I25.2 Old myocardial infarction; Z95.5 Presence of coronary angioplasty implant and graft; Z95.0 Presence of cardiac pacemaker; Z85.46 Personal history of malignant neoplasm of prostate; Z92.3 Personal history of irradiation; Z79.899 Other long term (current) drug therapy; Z79.82 Long term (current) use of aspirin
CPT/HCPCS: 36415; 80048; 85025; 87070; 87102; 87205; 87206; J0171; J1100; J1644; J2001; J2405; J2543; J2704; J3490; J8540; U0002

== ENCOUNTER 2022-03-02 16:01 | Emergency (ER) | payer MEDICARE ==
[~2022-03-02 16:01] MED LIST changes: +Iopamidol-370 76% 500 ML 1 ML ONE; -Iopamidol-M 200 41% 20 ML VIAL ONE; -Prevnar 13-Val Conj/PF 0.5 ML SYRINGE IM ONE
[2022-03-02] MEDS ORDERED: Oxymetazoline HCl 0.05% (30 ML BOT) ONE (16:53)
[2022-03-02 18:08] LABS: #Basophils 0.2 thou/uL (0.0-0.2); #Eosinphils 0.1 thou/uL (0.0-0.7); #Lymphocytes 2.1 thou/uL (1.20-3.40); #Monocytes 0.6 thou/uL (0.11-0.59); #Neutrophils 6.2 thou/uL (1.40-6.50); %Basophils 2.1 % (0.0-1.0); %Eosinophils 1.1 % (0.0-10.0); %Lymphocytes 22.6 % (21.0-51.0); %Monocytes 6.1 % (0.0-10.0); %Neutrophils 68.1 % (42.0-75.0); Hemoglobin 10.8 g/dL (14.0-18.0); Mean Corpuscular HGB CONC 31.2 g/dL (32.0-36.0); Mean Corpuscular Hemoglobin 26.4 pg (27.0-31.0); Mean Corpuscular Volume 84.6 fl (78.0-98.0); Mean Platelet Volume 7.6 fL (7.4-10.4); Platelet Count 159 10x3/uL (130-400); RBC Distribution Width 14.4 % (11.5-14.5); Red Blood Cell (RBC) Count 4.09 mill/uL (4.70-6.10); White Blood Cell (WBC) Count 9.1 10x3/uL (4.8-10.8)
[2022-03-02 18:20] LABS: INR-International Normal Ratio 1.2; PTT 35.1 sec (22.9-36.1)
[2022-03-02 18:33] LABS: Anion Gap 14 mmol/L (10-20); BUN (Urea Nitrogen) 32 mg/dL (8.4-25.7); Calc. Creatinine Clearance 0 mL/min (70-130); Calcium 8.4 mg/dL (7.8-10.44); Carbon Dioxide 18 mmol/L (23-31); Chloride 111 mmol/L (98-107); Estimated GFR 50; Glucose 92 mg/dL (83-110); Sodium 138 mmol/L (136-145)
== END 2022-03-02 20:36 | disposition home or self-care (01) ==
LOC: ERS 16:01
DX: R04.0 Epistaxis (principal); E78.5 Hyperlipidemia, unspecified; I10 Essential (primary) hypertension; E78.00 Pure hypercholesterolemia, unspecified; Z79.899 Other long term (current) drug therapy
CPT/HCPCS: 30901; 70487; 80048; 85025; 85610; 85730; Q9967

== ENCOUNTER 2022-03-07 10:54 | Outpatient (CLI) | payer MEDICARE | END 2022-03-07 10:55 | disposition home or self-care (01) | LOC: BICCT 10:54 → CT 10:55 | PROVIDERS: ATTEND Family Medicine | DX: R91.1 Solitary pulmonary nodule (principal); R91.8 Other nonspecific abnormal finding of lung field | CPT/HCPCS: 71250 ==

== ENCOUNTER 2023-03-26 03:28 | Inpatient (IN) | payer MEDICARE ==
[2023-03-26 09:51] LABS: #Monocytes 0.7 thou/uL (0.11-0.59); #Neutrophils 4.3 thou/uL (1.40-6.50); %Basophils 0.5 % (0.0-1.0); %Eosinophils 0.3 % (0.0-10.0); %Lymphocytes 18.9 % (21.0-51.0); %Monocytes 11.7 % (0.0-10.0); %Neutrophils 68.4 % (42.0-75.0); Hematocrit 34.7 % (42.0-52.0); Hemoglobin 10.6 g/dL (14.0-18.0); Mean Corpuscular HGB CONC 30.5 g/dL (32.0-36.0); Mean Corpuscular Hemoglobin 21.4 pg (27.0-31.0); Platelet Count 114 10x3/uL (130-400); RBC Distribution Width 28.4 % (11.5-14.5); Red Blood Cell (RBC) Count 4.96 mill/uL (4.70-6.10); White Blood Cell (WBC) Count 6.3 10x3/uL (4.8-10.8)
[2023-03-26 10:08] LABS: ALT (SGPT) 10 U/L (8-55); AST (SGOT) 15 U/L (5-34); Albumin 3.7 g/dL (3.4-4.8); Alkaline Phosphatase 86 U/L (40-110); Anion Gap 11 mmol/L (10-20); BUN (Urea Nitrogen) 20 mg/dL (8.4-25.7); Bilirubin, Total 0.5 mg/dL (0.2-1.2); Calc. Creatinine Clearance 0 mL/min (70-130); Calcium 8.4 mg/dL (7.8-10.44); Carbon Dioxide 24 mmol/L (23-31); Chloride 104 mmol/L (98-107); Estimated GFR 37; Globulin 2.3 g/dL (2.4-3.5); Glucose 95 mg/dL (83-110); Potassium 3.9 mmol/L (3.5-5.1); Sodium 135 mmol/L (136-145)
[2023-03-26 10:40] LABS: Anisocytosis SLIGHT = 6-15 cells HPF (0-5); Burr Cells SLIGHT = 2-5 cells HPF (0-1); CellaVision Operator ID LAB.NR; Elliptocytes SLIGHT = 2-5 cells HPF (0-1); Hypochromia SLIGHT = 6-15 cells HPF (0-5); Platelet Adequacy Comment Platelets Decreased; Polychromasia SLIGHT = 2-3 cells HPF (0-2); Schistocytes SLIGHT = 2-5 cells HPF (0-1)
[2023-03-26] MEDS ORDERED: Senokot S 8.6-50 MG TAB PO PRN (12:56)
[2023-03-26 16:25] VITALS: BMI 26.2
[2023-03-26] MEDS: Rosuvastatin 20 MG TAB PO SCH (20:32)
[2023-03-26] MEDS: Acetaminophen 325 MG TAB PO PRN (20:32)
[2023-03-27 07:34] LABS: #Eosinphils 0.2 thou/uL (0.0-0.7); #Monocytes 0.6 thou/uL (0.11-0.59); #Neutrophils 2.6 thou/uL (1.40-6.50); %Basophils 0.4 % (0.0-1.0); %Eosinophils 3.4 % (0.0-10.0); %Lymphocytes 31.5 % (21.0-51.0); %Monocytes 12.6 % (0.0-10.0); %Neutrophils 51.9 % (42.0-75.0); Hematocrit 35.4 % (42.0-52.0); Hemoglobin 10.5 g/dL (14.0-18.0); Mean Corpuscular HGB CONC 29.7 g/dL (32.0-36.0); Mean Corpuscular Volume 70.9 fl (78.0-98.0); RBC Distribution Width 28.7 % (11.5-14.5); Red Blood Cell (RBC) Count 4.99 mill/uL (4.70-6.10)
[2023-03-27 07:38] LABS: Platelet Count 111 10x3/uL (130-400)
[2023-03-27 08:09] LABS: Anion Gap 12 mmol/L (10-20); BUN (Urea Nitrogen) 18 mg/dL (8.4-25.7); Calc. Creatinine Clearance 38 mL/min (70-130); Calcium 8.3 mg/dL (7.8-10.44); Carbon Dioxide 25 mmol/L (23-31); Chloride 105 mmol/L (98-107); Estimated GFR 42; Glucose 93 mg/dL (83-110); Potassium 3.7 mmol/L (3.5-5.1); Sodium 138 mmol/L (136-145)
[2023-03-27] MEDS: Aspirin 81 mg Enteric Coated Tablet PO SCH (08:39)
[2023-03-27] MEDS: Empagliflozin 25 MG TAB PO SCH (08:40)
[2023-03-27] MEDS: Ezetimibe 10 MG TAB PO SCH (08:40)
[2023-03-27] MEDS: Memantine 10 MG TAB PO SCH (08:40)
[2023-03-27] MEDS ORDERED: Amlodipine 10 MG TAB PO SCH (09:30)
[2023-03-27 10:11] LABS: Iron 16 ug/dL (65-175); Iron Binding Capacity, Total 305 mcg/dL (261-462)
[2023-03-27] MEDS: Acetaminophen 325 MG TAB PO PRN (20:59)
[2023-03-27] MEDS: Rosuvastatin 20 MG TAB PO SCH (20:59)
[2023-03-28] MEDS: Amlodipine 10 MG TAB PO SCH (08:26)
[2023-03-28] MEDS: Empagliflozin 25 MG TAB PO SCH (08:29)
[2023-03-28] MEDS: Memantine 10 MG TAB PO SCH (08:29)
[2023-03-28] MEDS: Ezetimibe 10 MG TAB PO SCH (08:29)
[2023-03-28] MEDS: Aspirin 81 mg Enteric Coated Tablet PO SCH (08:29)
[2023-03-28 08:45] LABS: #Eosinphils 0.3 thou/uL (0.0-0.7); #Monocytes 0.4 thou/uL (0.11-0.59); #Neutrophils 1.9 thou/uL (1.40-6.50); %Basophils 0.7 % (0.0-1.0); %Eosinophils 6.1 % (0.0-10.0); %Lymphocytes 35.9 % (21.0-51.0); %Neutrophils 47.1 % (42.0-75.0); Hematocrit 34.8 % (42.0-52.0); Hemoglobin 10.3 g/dL (14.0-18.0); Mean Corpuscular HGB CONC 29.6 g/dL (32.0-36.0); Platelet Count 115 10x3/uL (130-400); RBC Distribution Width 28.4 % (11.5-14.5); White Blood Cell (WBC) Count 4.1 10x3/uL (4.8-10.8)
[2023-03-28 09:13] LABS: Anion Gap 12 mmol/L (10-20); BUN (Urea Nitrogen) 25 mg/dL (8.4-25.7); Calc. Creatinine Clearance 38 mL/min (70-130); Carbon Dioxide 23 mmol/L (23-31); Chloride 108 mmol/L (98-107); Estimated GFR 41; Glucose 87 mg/dL (83-110); Potassium 4.1 mmol/L (3.5-5.1); Sodium 139 mmol/L (136-145)
[2023-03-28 09:18] LABS: Hypochromia SLIGHT = 6-15 cells (100X) (0-5/hpf); Microcytosis MODERATE=15-30 cells (100X) (0-5/hpf); Ovalocytes SLIGHT = 2-5 cells (100X) (0-1/hpf); Polychromasia SLIGHT = 2-3 cells (100X) (0-2/hpf)
[2023-03-28] MEDS: Acetaminophen 325 MG TAB PO PRN (20:25)
[2023-03-28] MEDS: Rosuvastatin 20 MG TAB PO SCH (20:25)
[2023-03-29 06:32] LABS: #Eosinphils 0.3 thou/uL (0.0-0.7); #Monocytes 0.4 thou/uL (0.11-0.59); #Neutrophils 2.2 thou/uL (1.40-6.50); %Basophils 0.9 % (0.0-1.0); %Eosinophils 6.7 % (0.0-10.0); %Lymphocytes 36.3 % (21.0-51.0); %Monocytes 8.9 % (0.0-10.0); Hemoglobin 10.9 g/dL (14.0-18.0); Mean Corpuscular HGB CONC 29.5 g/dL (32.0-36.0); Mean Corpuscular Hemoglobin 20.9 pg (27.0-31.0); Platelet Count 143 10x3/uL (130-400); RBC Distribution Width 28.3 % (11.5-14.5); Red Blood Cell (RBC) Count 5.21 mill/uL (4.70-6.10); White Blood Cell (WBC) Count 4.6 10x3/uL (4.8-10.8)
[2023-03-29 06:58] LABS: Anion Gap 10 mmol/L (10-20); BUN (Urea Nitrogen) 26 mg/dL (8.4-25.7); Calc. Creatinine Clearance 40 mL/min (70-130); Calcium 8.7 mg/dL (7.8-10.44); Carbon Dioxide 27 mmol/L (23-31); Chloride 108 mmol/L (98-107); Estimated GFR 45; Glucose 90 mg/dL (83-110); Potassium 4.7 mmol/L (3.5-5.1); Sodium 140 mmol/L (136-145)
[2023-03-29] MEDS: Aspirin 81 mg Enteric Coated Tablet PO SCH (09:01)
[2023-03-29] MEDS: Torsemide 10 MG TAB PO SCH (09:01)
[2023-03-29] MEDS: Amlodipine 10 MG TAB PO SCH (09:02)
[2023-03-29] MEDS: Memantine 10 MG TAB PO SCH (09:02)
[2023-03-29] MEDS: Empagliflozin 25 MG TAB PO SCH (09:02)
[2023-03-29] MEDS: Ezetimibe 10 MG TAB PO SCH (09:02)
[2023-03-29] MEDS: Acetaminophen 325 MG TAB PO PRN (20:05)
[2023-03-29] MEDS: Rosuvastatin 20 MG TAB PO SCH (20:05)
[2023-03-30] MEDS: Amlodipine 10 MG TAB PO SCH (08:46)
[2023-03-30] MEDS: Clopidogrel Bisulfate 75 MG TAB PO SCH (08:47)
[2023-03-30] MEDS: Empagliflozin 25 MG TAB PO SCH (08:47)
[2023-03-30] MEDS: Memantine 10 MG TAB PO SCH (08:47)
[2023-03-30] MEDS: Aspirin 81 mg Enteric Coated Tablet PO SCH (08:47)
[2023-03-30] MEDS: Ezetimibe 10 MG TAB PO SCH (08:47)
[2023-03-30] MEDS: Rosuvastatin 20 MG TAB PO SCH (21:29)
[2023-03-30] MEDS: Acetaminophen 325 MG TAB PO PRN (21:29)
[2023-03-31] MEDS: Ezetimibe 10 MG TAB PO SCH (08:29)
[2023-03-31] MEDS: Memantine 10 MG TAB PO SCH (08:29)
[2023-03-31] MEDS: Clopidogrel Bisulfate 75 MG TAB PO SCH (08:29)
[2023-03-31] MEDS: Amlodipine 10 MG TAB PO SCH (08:29)
[2023-03-31] MEDS: Aspirin 81 mg Enteric Coated Tablet PO SCH (08:29)
[2023-03-31] MEDS: Empagliflozin 25 MG TAB PO SCH (08:30)
[2023-03-31] MEDS: Torsemide 10 MG TAB PO SCH (08:37)
[2023-03-31 14:26] VITALS: BP 108/68; TEMP 97.7
== END 2023-03-31 14:36 | disposition home health service (06) | DRG 178 ==
LOC: ERS 03:28 → T4-B 13:02 → OBSVTOIN 03-28 18:22
PROVIDERS: ADMIT Internal Medicine; ATTEND Internal Medicine
PROC: 8E0ZXY6 Isolation (ICD-10-PCS; principal; 2023-03-28)
DX: U07.1 COVID-19 (principal); E87.1 Hypo-osmolality and hyponatremia; N17.9 Acute kidney failure, unspecified; I10 Essential (primary) hypertension; E78.5 Hyperlipidemia, unspecified; C61 Malignant neoplasm of prostate; K21.9 Gastro-esophageal reflux disease without esophagitis; D69.6 Thrombocytopenia, unspecified; R29.6 Repeated falls; N18.32 Chronic kidney disease, stage 3b; I12.9 Hypertensive chronic kidney disease with stage 1 through stage 4 chronic kidney disease, or unspecified chronic kidney disease; R53.1 Weakness; D50.9 Iron deficiency anemia, unspecified; D63.1 Anemia in chronic kidney disease; Z79.899 Other long term (current) drug therapy; Z98.890 Other specified postprocedural states; Z95.0 Presence of cardiac pacemaker; Z79.82 Long term (current) use of aspirin
CPT/HCPCS: 36415; 80048; 80053; 82728; 83540; 83550; 85025; 99285